=== PATIENT | male | born 1955 | race Caucasian/White ===

== ENCOUNTER 2017-07-13 10:45 | Inpatient (IN) ==
[2017-07-13] MEDS ORDERED: IPRATROPIUM/ALBUTEROL 3 ML AMPUL.NEB NEB ONE ×2 (10:55→11:07)
[2017-07-13] MEDS ORDERED: 0.9 % SODIUM CHLORIDE 2,000 ML IV ONE (11:03)
[2017-07-13 11:36] LABS: Basophils # (Auto) 0 K/mcL (0.0-0.3); Basophils % (Auto) 0.1 % (0.0-2.0); Eosinophils # (Auto) 0 K/mcL (0.0-0.7); Eosinophils % (Auto) 0.5 % (0.0-7.0); Granulocytes % (Auto) 90.6 % (38.0-78.0); Lymphocytes # (Auto) 0.2 K/mcL (1.5-4.8); Lymphocytes % (Auto) 2.5 % (15.5-49.0); Mean Cell Volume 98.5 fL (80.0-100.0); Mean Corpuscular HGB Conc 34.1 g/dL (31.0-36.0); Mean Corpuscular Hemoglobin 33.6 pg (26.0-34.0); Monocytes # (Auto) 0.5 K/mcL (0.1-0.9); Monocytes % (Auto) 6.3 % (1.0-12.0); Platelet Count 145 K/mcL (140-440); RBC 3.86 M/mcL (4.50-5.90); Red Cell Distribution Width 13.8 % (11.5-14.5)
[2017-07-13] MEDS ORDERED: ONDANSETRON 4 MG/2 ML VIAL IV ONE (11:37)
[2017-07-13] MEDS ORDERED: AZITHROMYCIN 500 MG in DEXTROSE 5% IN WATER 250 ML IV ONE (11:39)
[2017-07-13] MEDS ORDERED: cefTRIAXone 1 GM VIAL IV ONE (11:39)
--- NOTE | 2017-07-13 11:41 | Emergency Department Note ---
Weakness HPI - General Chief complaint: Weakness Stated complaint: Vomiting, weakness Time Seen by Provider: 07/13/17 11:36 Source: patient, family Mode of arrival: wheelchair Limitations: no limitations - History of Present Illness HPI Narrative: This 62-year-old male comes in with his , Vanesa, complaining of being tired and ill and not feeling well. He had the flulike symptoms with some cough in the past several days but he reports he has had a two-week history. He developed some dry heaves both last night and today. He ate lunch yesterday but felt awful afterwards and took some DayQuil. He was achy. He has been groggy and "rummy" which she believes is just to him to being ill and tired. He has had some phlegm in his nose that he sucks up. This is worse in the last 1 week. He has had no exposure to influenza. He did not get a flu shot this year. He has not previously been diagnosed with any COPD but he does smoke. He has no history of pneumonia or asthma. He does not use oxygen. He has no inhalers. REVIEW OF SYSTEMS: Has felt warm and/or feverish. checked his temperature this morning and it was 98.8. He has had some sweats in the past 2 days. No throat pain. He has had some chronic nasal congestion but some worsening. Denies chest pain. Has had cough and shortness of breath. He has had a little bit of wheeziness which is new and has been present in the past 2 weeks. He admits to some anxiety and depression. Admits to weakness and fatigue. - Related Data Allergies Allergy/AdvReac Type Severity Reaction Status Date / Time No Known Drug Allergies Allergy Unverified 07/13/17 10:50 Past Medical History - Past Medical History Medical history: Reports: DM (Type II now insulin using.), hypertension (Not currently under treatment), hypothyroidism, other (bladder stone ("blasted" 2008 ). Diabetic peripheral neuropathy.). Denies: asthma, CHF, COPD, CVA, myocardial infarction, seizures, TIA Psychiatric history: Reports: anxiety, depression - Social History smoking status: Current every day smoker Alcohol use: Reports: Daily (beer 1-2) Physical Exam Limitations: no limitations General appearance: lethargic, malaise (moderate to severe. ) Head: atraumatic, normocephalic Eye: Present: EOMI ENT: normal oropharynx, mucous membranes dry Neck: Present: trachea midline. Absent: lymphadenopathy, thyromegaly Respiratory: Present: wheezes (mild occasionasional), other (mildly fast.). Absent: respiratory distress, stridor, accessory muscle use, prolonged expiratory phase Cardiovascular: Present: regular rate, normal rhythm. Absent: systolic murmur, diastolic murmur Abdominal: Present: soft. Absent: distention, tenderness, guarding, rebound, rigidity, organomegaly, mass Extremities: Absent: pedal edema, pretibial edema, calf tenderness Neurological: Present: alert, oriented X3, other (some slow or delay in speech. Responses generally appropriate.) Psychiatric: Present: flat affect. Absent: agitated, anxious Skin: Present: warm, dry Course Vital Signs Temperature 100.2 F H 07/13/17 10:46 Pulse Rate 99 H 07/13/17 10:46 Respiratory Rate 22 07/13/17 10:46 Blood Pressure 166/68 07/13/17 10:46 Pulse Oximetry (%) 87 L 07/13/17 10:46 Temperature 101.5 F H 07/13/17 12:14 Pulse Rate 97 H 07/13/17 12:46 Respiratory Rate 25 H 07/13/17 12:46 Blood Pressure 144/78 07/13/17 12:46 Pulse Oximetry (%) 88 L 07/13/17 12:46 Weakness - MDM Narrative Medical decision making narrative: This 62-year-old male presented with fatigue and not feeling well. He was found to be somewhat hypoxic with sats in the 88% commonly, tachycardic at around 96, low-grade temperature, and respiratory rate in the 30s. He did not complain of much distress, just that he had a 2 week history of cough. His reports 2 days of him feeling worse with "flu-like" type of symptoms. He appeared to have a rather ill general appearance and a sepsis workup was initiated. He met criteria for aggressive measures given the above. He was given 2 L of normal saline. With labs coming back with a troponin of 0.05, and an enlarged heart on chest x-ray with some mild vascular increased appearance and probable CHF, furosemide 10 mg was given IV ordered around 12:15 PM today. Because of his sepsis/SIRS presentation, ceftriaxone and azithromycin were given considering it appeared to be a pulmonary source. Shaw catheter was also ordered around 12:23 PM. He also had a mildly elevated liver function tests a mild anemia and a mild troponin bump of 0.05. EKG was nonacute. I discussed his situation with Dr. Brown, a few minutes before 1 PM and he kindly accepted care of this patient who will need an ICU bed. Tamiflu initiated. Vancomycin ordered per pharmacy recommendations given his creatinine of 2.0. BiPAP also initiated with 12/6 pressures, FiO2 of 60% and a goal of at least 90%. - Lab Data Result diagrams: 07/13/17 11:08 07/13/17 11:07 Lab Results 07/13/17 07/13/17 07/13/17 Range/Units 11:07 11:07 11:07 WBC 7.4 (4.5-11.0) K/mcL RBC 3.86 L (4.50-5.90) M/mcL Hgb 13.0 L (13.5-16.5) g/dL Hct 38.0 L (41.0-55.0) % MCV 98.5 (80.0-100.0) fL MCH 33.6 (26.0-34.0) pg MCHC 34.1 (31.0-36.0) g/dL RDW 13.8 (11.5-14.5) % Plt Count 145 (140-440) K/mcL MPV 10.2 (7.4-10.4) fL Gran % 90.6 H (38.0-78.0) % Lymph % (Auto) 2.5 L (15.5-49.0) % [place] % (Auto) 6.3 (1.0-12.0) % Eos % (Auto) 0.5 (0.0-7.0) % Baso % (Auto) 0.1 (0.0-2.0) % Gran # 6.7 (1.8-8.0) K/mcL Lymph # (Auto) 0.2 L (1.5-4.8) K/mcL [place] # (Auto) 0.5 (0.1-0.9) K/mcL Eos # (Auto) 0 (0.0-0.7) K/mcL Baso # (Auto) 0 (0.0-0.3) K/mcL Differential Comment VBG Lactic Acid (0.5-2.2) mmol/L Sodium 138 (133-145) mmol/L Potassium 4.9 (3.3-5.1) mmol/L Chloride 99 (96-108) mmol/L Carbon Dioxide 23 (22-30) mmol/L Anion Gap 16.0 (8-16) BUN 33 H (8-23) mg/dl Creatinine 2.0 H (0.7-1.2) mg/dl GFR Calculation 35 Glucose 504 H* (70-105) mg/dL Calcium 8.7 (8.6-10.4) mg/dl Total Bilirubin 0.4 (0.0-1.0) mg/dL AST 54 H (0-37) U/l ALT 47 H (0-40) U/l Alkaline Phosphatase 90 (39-117) U/L Troponin T 0.05 H* (0-0.03) ng/ml Total Protein 6.6 (5.9-8.4) gm/dL Albumin 4.0 (3.2-5.2) gm/dL Globulin 2.6 (2.2-3.7) gm/dL Albumin/Globulin Ratio 1.5 (1.0-2.3) Procalcitonin (<0.10) ng/mL Influenza A (Rapid) Influenza B (Rapid) 07/13/17 07/13/17 07/13/17 Range/Units 11:08 11:08 11:08 WBC Cancelled (4.5-11.0) K/mcL RBC Cancelled (4.50-5.90) M/mcL Hgb Cancelled (13.5-16.5) g/dL Hct Cancelled (41.0-55.0) % MCV Cancelled (80.0-100.0) fL MCH Cancelled (26.0-34.0) pg MCHC Cancelled (31.0-36.0) g/dL RDW Cancelled (11.5-14.5) % Plt Count Cancelled (140-440) K/mcL MPV Cancelled (7.4-10.4) fL Gran % Cancelled (38.0-78.0) % Lymph % (Auto) Cancelled (15.5-49.0) % [place] % (Auto) Cancelled (1.0-12.0) % Eos % (Auto) Cancelled (0.0-7.0) % Baso % (Auto) Cancelled (0.0-2.0) % Gran # Cancelled (1.8-8.0) K/mcL Lymph # (Auto) Cancelled (1.5-4.8) K/mcL [place] # (Auto) Cancelled (0.1-0.9) K/mcL Eos # (Auto) Cancelled (0.0-0.7) K/mcL Baso # (Auto) Cancelled (0.0-0.3) K/mcL Differential Comment Cancelled VBG Lactic Acid 1.8 (0.5-2.2) mmol/L Sodium (133-145) mmol/L Potassium (3.3-5.1) mmol/L Chloride (96-108) mmol/L Carbon Dioxide (22-30) mmol/L Anion Gap (8-16) BUN (8-23) mg/dl Creatinine (0.7-1.2) mg/dl GFR Calculation Glucose (70-105) mg/dL Calcium (8.6-10.4) mg/dl Total Bilirubin (0.0-1.0) mg/dL AST (0-37) U/l ALT (0-40) U/l Alkaline Phosphatase (39-117) U/L Troponin T (0-0.03) ng/ml Total Protein (5.9-8.4) gm/dL Albumin (3.2-5.2) gm/dL Globulin (2.2-3.7) gm/dL Albumin/Globulin Ratio (1.0-2.3) Procalcitonin 0.32 (<0.10) ng/mL Influenza A (Rapid) Influenza B (Rapid) 07/13/17 Range/Units 12:00 WBC (4.5-11.0) K/mcL RBC (4.50-5.90) M/mcL Hgb (13.5-16.5) g/dL Hct (41.0-55.0) % MCV (80.0-100.0) fL MCH (26.0-34.0) pg MCHC (31.0-36.0) g/dL RDW (11.5-14.5) % Plt Count (140-440) K/mcL MPV (7.4-10.4) fL Gran % (38.0-78.0) % Lymph % (Auto) (15.5-49.0) % [place] % (Auto) (1.0-12.0) % Eos % (Auto) (0.0-7.0) % Baso % (Auto) (0.0-2.0) % Gran # (1.8-8.0) K/mcL Lymph # (Auto) (1.5-4.8) K/mcL [place] # (Auto) (0.1-0.9) K/mcL Eos # (Auto) (0.0-0.7) K/mcL Baso # (Auto) (0.0-0.3) K/mcL Differential Comment VBG Lactic Acid (0.5-2.2) mmol/L Sodium (133-145) mmol/L Potassium (3.3-5.1) mmol/L Chloride (96-108) mmol/L Carbon Dioxide (22-30) mmol/L Anion Gap (8-16) BUN (8-23) mg/dl Creatinine (0.7-1.2) mg/dl GFR Calculation Glucose (70-105) mg/dL Calcium (8.6-10.4) mg/dl Total Bilirubin (0.0-1.0) mg/dL AST (0-37) U/l ALT (0-40) U/l Alkaline Phosphatase (39-117) U/L Troponin T (0-0.03) ng/ml Total Protein (5.9-8.4) gm/dL Albumin (3.2-5.2) gm/dL Globulin (2.2-3.7) gm/dL Albumin/Globulin Ratio (1.0-2.3) Procalcitonin (<0.10) ng/mL Influenza A (Rapid) Positive A Influenza B (Rapid) Presumed negative Disposition Pt seen by LEASE ADMINISTRATION ANALYST/PA only: No Clinical Impression: Hypoxia, Acidosis, metabolic, Elevated LFTs, Elevated serum creatinine CHF (congestive heart failure) Qualifiers: Heart failure type: systolic Heart failure chronicity: acute Qualified Code(s) : I50.21 - Acute systolic (congestive) heart failure Diabetes mellitus type 2, uncontrolled, with complications Qualifiers: Diabetes mellitus wound care center consultant insulin use: with skilled nursing use Qualified Code(s): E11.8 - Type 2 diabetes mellitus with unspecified complications; E11.65 - Type 2 diabetes mellitus with hyperglycemia; Z79.4 - search planner (current) use of insulin Anemia Qualifiers: Anemia type: unspecified type Qualified Code(s): D64.9 - Anemia, unspecified Disposition: Xfer As Inpt ([facility]) Condition: Critical
--- NOTE | 2017-07-13 11:41 | XRay Report ---
INDICATION: Hypoxia. Cough. TECHNIQUE: PA and lateral upright chest x-ray COMPARISON: None FINDINGS:There is cardiomegaly. Pulmonary vascularity is prominent consistent pulmonary congestion. There are probable subtle septal lines and mild peribronchial thickening. Appearance is consistent with mild interstitial pulmonary edema. No evidence for significant pleural effusion. No focal pulmonary parenchymal consolidation. Findings are consistent with mild congestive heart failure. Clinical correlation and follow-up radiographs recommended. IMPRESSION: 1. Cardiomegaly and pulmonary congestion 2. Probable subtle interstitial edema consistent with congestive heart failure. Clinical correlation and follow-up radiographs are necessary Interpreted and Authenticated by: Rajendra Roberts 07/13/17
[2017-07-13 11:57] LABS: ALT/SGPT 47 U/l (0-40); Albumin/Globulin Ratio 1.5 (1.0-2.3); Alkaline Phosphatase 90 U/L (39-117); Blood Urea Nitrogen 33 mg/dl (8-23)
[2017-07-13] MEDS ORDERED: FUROSEMIDE 20 MG/2 ML VIAL IV ONE (12:19)
[2017-07-13] MEDS ORDERED: LIDOCAINE JEL 2% 1 TUBE 30GM TOPICAL ONE (12:27)
[2017-07-13] MEDS ORDERED: LIDOCAINE 2% URO-JET 5 ML JEL.PF.APP UR ONE (12:50)
[2017-07-13] MEDS ORDERED: VANCOMYCIN PER PHARMACY IV ONE (12:59)
[2017-07-13] MEDS ORDERED: OSELTAMIVIR PHOSPHATE 75 MG CAPSULE PO ONE (13:01)
[2017-07-13] MEDS ORDERED: VANCOMYCIN 1,250 MG in 0.9 % SODIUM CHLORIDE 500 ML IV ONE (13:15)
[2017-07-13] MEDS ORDERED: INSULIN REGULAR, HUMAN 1 UNIT/0.01 ML UNIT IV ONE (13:34)
[2017-07-13 13:35] LABS: Appearance,Urine CLEAR; Bacteria,Urine 0 /hpf (0); Bilirubin,Urine NEG (NEG); Color,Urine YELLOW; Glucose,Urine (UA) >=500 mg/dL (NEG); Leukocyte Esterase,Urine NEG /uL (NEG); Mucus,Urine FEW /hpf (0); Protein,Urine 100 mg/dL (NEG); Urine Amorphous Crystals FEW /hpf (0); Urine Blood 0.03 mg/dL (<0.03); Urine RBC 2 /hpf (0-1); Urine Squamous Epithelial Cell 0 /hpf (0-4); Urine WBC 1 /hpf (0-4); Urobilinogen,Urine NEG (NEG)
[2017-07-13] MEDS ORDERED: LORazepam 2 MG/ML VIAL IV ONE (13:59)
[2017-07-13] MEDS ORDERED: ACETAMINOPHEN 325 MG TABLET PO ONE (14:28)
[2017-07-13] MEDS ORDERED: ONDANSETRON 4 MG/2 ML VIAL IV PRN (15:16)
[2017-07-13] MEDS ORDERED: ACETAMINOPHEN 325 MG TABLET PO PRN (15:16)
[2017-07-13] MEDS ORDERED: NOREPINEPHRINE BITARTRATE 16 MG in 0.9 % SODIUM CHLORIDE 234 ML IV PRN (15:16)
[2017-07-13] MEDS ORDERED: CEFEPIME 2 GM in DEXTROSE 5% IN WATER 50 ML IV SCH (15:16)
[2017-07-13] MEDS ORDERED: VANCOMYCIN PER PHARMACY IV SCH (15:16)
[2017-07-13] MEDS ORDERED: guaiFENesin/CODEINE 10 ML UDC PO PRN (15:16)
[2017-07-13] MEDS ORDERED: POTASSIUM CHLORIDE 40 MEQ in DEXTROSE 5% IN WATER 500 ML IV PRN (15:16)
[2017-07-13] MEDS ORDERED: POTASSIUM CHLORIDE 20 MEQ PACKET PO PRN (15:16)
[2017-07-13] MEDS ORDERED: MAGNESIUM SULFATE 2 GM/50 ML BAG IV PRN (15:16)
[2017-07-13] MEDS ORDERED: DEXTROSE 50% 50 ML VIAL IV PRN (15:24)
[2017-07-13] MEDS ORDERED: DEXTROSE 31 GM ORAL.SUSP PO PRN (15:24)
--- NOTE | 2017-07-13 15:33 | History and Physical Report ---
DATE OF ADMISSION: 07/13/2017 PRIMARY CARE PHYSICIAN: Luisito Dunn M.D. REASON FOR ADMISSION: Worsening shortness of breath, weakness, fatigue, and malaise. HISTORY OF CHIEF COMPLAINT: The patient is a 62-year-old, otherwise previously healthy, with history of diabetes who comes into [facility] Room after 2 weeks progressive shortness of breath along with fever, malaise, and weakness. The symptoms have intensified over the last 48 hours with the inability to perform activities of daily living. Initial workup in the ER was significant for profound hypoxia with a PO2 of 25. Patient was started on nasal cannula oxygen with chest X imaging revealing bilateral infiltrates service to pulmonary edema/pneumonia. After blood cultures patient received antibiotics/Lasix however symptoms fail to improve and he was subsequent restarted on noninvasive ventilation. Hospitalist service was subsequently consulted. on evaluation patient denies any change in mental status. He denies productive cough. He denies associated diarrhea, dysuria, chest pain, rash, joint pain, headache, or photophobia. He denies recent sick contacts, although he has not had his flu vaccine this year. He denies any other risk factors. REVIEW OF SYSTEMS: A ten-point review of system was performed and is negative except the ones discussed above. PAST MEDICAL HISTORY: History of diabetes mellitus type 2. CURRENT MEDICATIONS: Current medication list is being verified. SOCIAL HISTORY: [place] He works in a body shop. He is to his , Marguerite. He smokes six cigarettes a day and carries over a [id number] history of smoking. Occasional alcohol use. No substance abuse. ALLERGIES: None significant. FAMILY HISTORY: Significant for father with coronary artery disease. No other significant family history. PHYSICAL EXAMINATION: GENERAL: The patient is in moderate discomfort, currently on BiPAP mask. BMI 25.1. Height 5 feet 10 inches. VITAL SIGNS: Blood pressure 146/73, respiratory rate 43, temperature 101.5, pulse 93, sats 93% on 40% FiO2 noninvasive ventilation. HEENT: Pupils symmetric. Oral cavity is dry. No ear or nose discharge. Head is normocephalic and atraumatic. NECK: No lymphadenopathy. HEART: S1, S2, regular rhythm. No other telemetry events. Slight tachycardia. ABDOMEN: Soft and nontender. LOWER EXTREMITIES: No cyanosis or clubbing. No joint swelling. SKIN: No suspicious lesions. PSYCHIATRIC: Anxious, but alert, responding, cooperative. NEURO: Nonfocal, moving all four extremities, responding to commands, normal higher function. LABS AND IMAGING: White count 7.4, hemoglobin 13, platelets 145. Lactic acid 1.8. Sodium 138, potassium 4.9, creatinine 2, BUN 33, glucose 504. Bilirubin 0.4, AST 54, ALT 47. Troponin 0.05. Procalcitonin 0.32. UA unremarkable. Influenza A positive. ABG 7.33/44/46 on 5 liters of oxygen. X-ray chest: Cardiomegaly and pulmonary congestion, probably subtle interstitial edema consistent with congestive heart failure. EKG: Sinus tachycardia, left atrial enlargement. No ST segment changes. ASSESSMENT AND PLAN: A 62-year-old admitted with acute hypoxic respiratory failure/influenza pneumonia. 1. Influenza pneumonia. Continue Tamiflu, supportive management, crystalloids. 2. Hypoxic respiratory failure with a large A-a gradient and pO2/FiO2 ratio less than 200. Start noninvasive ventilation in light of possible shunt physiology. Continue pulmonary toilet, bronchodilators. Steroids currently not indicated in light of influenza. Start empiric MRSA coverage for super influenza and bacterial infections. 3. Acute pulmonary edema. Initiate diuretics. Echocardiogram. 4. History of diabetes mellitus type 2. Continue basal prandial insulin. 5. Other prior medical issues will be managed on home medications currently being verified from pharmacy. 6. CODE STATUS: FULL CODE. 7. Prophylaxis will be on heparin. PLAN FOR TODAY: 1. Echocardiogram. 2. Supportive management. 3. Tamiflu. 4. Empiric antibiotic coverage, including cefepime and vancomycin. 5. Gentle diuresis. 6. Noninvasive ventilation. 7. Initial [place] score 18, high-risk mortality. Admit as inpatient. Anticipate minimum 48-hour, two-midnight stay. AA:[email or web address] Job ID: [id number] Doc ID: [id number] Kyle ALBA
[2017-07-13] MEDS: IPRATROPIUM/ALBUTEROL 3 ML AMPUL.NEB NEB SCH ×3 (15:47→23:06)
[2017-07-13] MEDS: 0.9 % SODIUM CHLORIDE 10 ML SYRINGE IV SCH ×2 (17:22→21:27)
[2017-07-13] MEDS: INSULIN LISPRO 1 UNIT/0.01 ML UNIT SQ SCH ×5 (17:25→21:49)
[2017-07-13] MEDS: CEFEPIME 2 GM VIAL IV SCH (17:28)
[2017-07-13] MEDS ORDERED: LORazepam 2 MG/ML VIAL IV PRN ×2 (18:37→20:10)
[2017-07-13] MEDS ORDERED: LORazepam 2 MG/ML VIAL ONE (18:55)
[2017-07-13] MEDS: BUDESONIDE 0.5 MG/2 ML AMPUL.NEB NEB SCH (19:14)
[2017-07-13] MEDS: HEPARIN 5,000 UNIT/ML VIAL SQ SCH (21:21)
[2017-07-13] MEDS: TAMSULOSIN 0.4 MG CAPSULE PO SCH (21:21)
[2017-07-13] MEDS: DOCUSATE SODIUM 100 MG CAPSULE PO SCH (21:21)
[2017-07-13] MEDS: GABAPENTIN 400 MG CAPSULE PO SCH (21:23)
[2017-07-13] MEDS: traZODone HCL 50 MG TABLET PO PRN (21:25)
[2017-07-13] MEDS: SENNOSIDES/DOCUSATE SODIUM 1 TAB TABLET PO SCH (21:25)
[2017-07-13] MEDS: INSULIN GLARGINE, HUMAN 1 UNIT/0.01 ML SQ SCH (21:47)
[2017-07-14] MEDS: INSULIN LISPRO 1 UNIT/0.01 ML UNIT SQ SCH ×9 (00:37→21:44)
[2017-07-14] MEDS: ACETAMINOPHEN 1,000 MG/100 ML BOTTLE IV PRN ×2 (00:37→10:24)
[2017-07-14] MEDS ORDERED: LORazepam 2 MG/ML VIAL IV PRN (02:32)
[2017-07-14] MEDS: IPRATROPIUM/ALBUTEROL 3 ML AMPUL.NEB NEB SCH ×6 (03:09→23:18)
[2017-07-14] MEDS: 0.9 % SODIUM CHLORIDE 10 ML SYRINGE IV SCH ×3 (05:42→21:46)
[2017-07-14 05:44] LABS: Mean Cell Volume 98.8 fL (80.0-100.0); Mean Corpuscular HGB Conc 34.6 g/dL (31.0-36.0); Mean Corpuscular Hemoglobin 34.2 pg (26.0-34.0); Platelet Count 127 K/mcL (140-440); RBC 3.69 M/mcL (4.50-5.90); Red Cell Distribution Width 13.6 % (11.5-14.5)
[2017-07-14 06:26] LABS: Band Neutrophils % 12 % (0-10); Lymphocytes % 8 % (15-49); Monocytes % (Manual) 2 % (1-12); Platelet Estimate DECREASED (NORMAL); RBC Morphology ABNORM (NORMAL); Segmented Neutrophils % 78 % (38-78)
[2017-07-14 06:36] LABS: ALT/SGPT 42 U/l (0-40); Albumin 3.4 gm/dL (3.2-5.2); Albumin/Globulin Ratio 1.4 (1.0-2.3); Alkaline Phosphatase 82 U/L (39-117); Bilirubin,Direct < 0.2 mg/dL (0.0-0.3); Blood Urea Nitrogen 41 mg/dl (8-23); Gamma Glutamyl Transpeptidase 66 U/L (8-61); Uric Acid 6.2 mg/dL (2.5-8.0)
[2017-07-14] MEDS: LEVOTHYROXINE 150 MCG TABLET PO SCH (07:44)
[2017-07-14] MEDS: BUDESONIDE 0.5 MG/2 ML AMPUL.NEB NEB SCH ×2 (07:55→19:07)
[2017-07-14] MEDS: GABAPENTIN 400 MG CAPSULE PO SCH ×3 (08:18→21:46)
[2017-07-14] MEDS: DOCUSATE SODIUM 100 MG CAPSULE PO SCH ×2 (08:49→21:46)
[2017-07-14] MEDS: MULTIVIT,THER IRON,CA,FA & MIN 1 TABLET PO SCH (08:49)
[2017-07-14] MEDS: VANCOMYCIN 1,250 MG in 0.9 % SODIUM CHLORIDE 500 ML IV SCH (09:09)
[2017-07-14] MEDS: CEFEPIME 2 GM VIAL IV SCH (09:09)
[2017-07-14] MEDS: HEPARIN 5,000 UNIT/ML VIAL SQ SCH ×2 (09:09→21:45)
[2017-07-14] MEDS ORDERED: OSELTAMIVIR PHOSPHATE 75 MG CAPSULE PO ONE (09:55)
[2017-07-14] MEDS: TAMSULOSIN 0.4 MG CAPSULE PO SCH ×2 (13:02→21:46)
--- NOTE | 2017-07-14 13:40 | Internal Med Progress Note ---
Medical - PN: Subj Patient information: Note initiated : 07/14/17 at 1:36 pm Service Date, if different from initiated Date: [] Patient: Javon Head 62 y/o M admitted on 07/13/17 for Hypoxic Resp Failure, Influenza Pneumonia. Chief Complaint: [] Interval history: patient admitted with acute influenza pneumonia/hypoxia respiratory failure. PaO2 to FiO2 ratio less than 200. Critically ill. On BiPAP.bilateral multifocal infiltrates. Started on bronchodilators/antibiotics. admitted to ICU. low threshold for mechanical ventilation if clinical deterioration noted.ABG 7.33/44/46 on 5 L oxygen. 07/14-patient on BiPAP. On 50% FiO2. Anxious requiring lorazepam. Large AA gradient.white count 7.4 with 12% bands.blood sugars improving down from 500 for 2-32 on basal prandial insulin. cultures negative so far. ontinue noninvasive ventilation. If clinical deterioration noted initiate mechanical ventilation. High-risk development of ARDS. Also high-risk superimposed pneumonia.continue antibiotic coverage/Tamiflu. [place] score 16 - Constitutional Vitals: Vital Signs Temp Pulse Resp BP Pulse Ox 100.5 F H 89 20 141/67 95 07/14/17 12:20 07/14/17 13:01 07/14/17 13:01 07/14/17 13:01 07/14/17 13:01 Period Temp Pulse Resp BP Sys/Locke Pulse Ox Last 24 Hr 98.9 F-102.3 F 87-105 20-43 116-166/54-87 87-97 Intake and Output 07/13/17 07/14/17 07/14/17 21:59 05:59 13:59 Intake Total 500 / 500 100 / 100 340 / 340 Output Total 2150 / 2150 425 / 425 540 / 540 Balance -1650 / -1650 -325 / -325 -200 / -200 Weight 179 lb 11.2 oz Intake & Output: Intake & Output 07/13/17 07/14/17 07/14/17 21:59 05:59 13:59 Intake Total 500 / 500 100 / 100 340 / 340 Output Total 2150 / 2150 425 / 425 540 / 540 Balance -1650 / -1650 -325 / -325 -200 / -200 Weight 179 lb 11.2 oz Intake: IV 500 / 500 100 / 100 100 / 100 Vancomycin 1,250 mg In Sodium 500 / 500 Chloride 0.9% 500 ml @ 333.3 mls/hr IV ONCE ONE Rx#: [id number] Oral 240 / 240 Output: Urine Catheter Amount 2150 / 2150 425 / 425 540 / 540 General appearance: mild distress Exam: on noninvasive ventilation 50% FiO2 Labored breathing but improved tachypnea Improved tachycardia nondistended abdomen Medical - PN: Obj Da - Labs CBC & Chem 7: 07/14/17 03:50 07/14/17 03:50 Labs: Abnormal Lab Results 07/14/17 07/14/17 07/13/17 03:50 03:50 12:59 RBC 3.69 L Hgb 12.6 L Hct 36.4 L MCH 34.2 H Plt Count 127 L MPV 10.8 H Gran % Lymph % (Auto) Lymph # (Auto) Band Neutrophils % 12 H Lymphocytes % 8 L Platelet Estimate Decreased A RBC Morphology Abnorm A RBC Fragments Occ A ESR BUN 41 H Creatinine 2.1 H Glucose 232 H Calcium 8.3 L Phosphorus 2.4 L GGT 66 H AST ALT 42 H Lactate Dehydrogenase 282 H Troponin T C-Reactive Protein Urine Protein 100 A Urine Glucose (UA) >=500 A Urine Ketones 5/tr A Urine Occult Blood 0.03 A Urine RBC 2 H Amorphous Crystals Few A Influenza A (Rapid) 07/13/17 07/13/17 07/13/17 12:00 11:07 11:07 RBC Hgb Hct MCH Plt Count MPV Gran % Lymph % (Auto) Lymph # (Auto) Band Neutrophils % Lymphocytes % Platelet Estimate RBC Morphology RBC Fragments ESR 22 H BUN Creatinine Glucose Calcium Phosphorus GGT AST ALT Lactate Dehydrogenase Troponin T C-Reactive Protein 5.6 H Urine Protein Urine Glucose (UA) Urine Ketones Urine Occult Blood Urine RBC Amorphous Crystals Influenza A (Rapid) Positive A 07/13/17 07/13/17 07/13/17 11:07 11:07 11:07 RBC 3.86 L Hgb 13.0 L Hct 38.0 L MCH Plt Count MPV Gran % 90.6 H Lymph % (Auto) 2.5 L Lymph # (Auto) 0.2 L Band Neutrophils % Lymphocytes % Platelet Estimate RBC Morphology RBC Fragments ESR BUN 33 H Creatinine 2.0 H Glucose 504 H* Calcium Phosphorus GGT AST 54 H ALT 47 H Lactate Dehydrogenase Troponin T 0.05 H* C-Reactive Protein Urine Protein Urine Glucose (UA) Urine Ketones Urine Occult Blood Urine RBC Amorphous Crystals Influenza A (Rapid) Meds: Medications Acetaminophen (Tylenol) 650 mg PO Q4-6HP PRN PRN Reason: PAIN/FEVER > 101 Last Admin: 07/13/17 21:25 Dose: 650 mg Albuterol/Ipratropium (Duoneb) 3 ml NEB Q4HRT [facility] Last Admin: 07/14/17 11:09 Dose: 3 ml Budesonide (Pulmicort) 0.5 mg NEB Q12 [facility] Last Admin: 07/14/17 07:55 Dose: 0.5 mg Cefepime HCl (Maxipime) 2 gm IV DAILY [facility] Last Admin: 07/14/17 09:09 Dose: 2 gm Dextrose (Dextrose 50%) 0 ml IV UD PRN PRN Reason: Hypoglycemia Diagnostic Test (Pha) (Accu-Chek) 1 each FS ACHS [facility] Last Admin: 07/14/17 11:39 Dose: 1 each Docusate Sodium (Colace) 100 mg PO BID [facility] Last Admin: 07/14/17 08:49 Dose: Not Given Gabapentin (Neurontin) 400 mg PO TID [facility] Last Admin: 07/14/17 08:18 Dose: 400 mg Glucose (Insta-Glucose) 15 gm PO PRN PRN PRN Reason: Hypoglycemia Guaifenesin/Codeine Phosphate (Robitussin Ac) 10 ml PO Q4HP PRN PRN Reason: Cough Heparin Sodium (Porcine) (Heparin) 5,000 unit SQ Q12 [facility] Last Admin: 07/14/17 09:09 Dose: 5,000 unit Potassium Chloride 40 meq/ (Dextrose) 520 mls @ 130 mls/hr IV UD PRN PRN Reason: K+ = or < 3.5 Magnesium Sulfate (Magnesium Sulfate) 2 gm in 50 mls @ 50 mls/hr IV UD PRN PRN Reason: MG = or < 1.7 Norepinephrine Bitartrate 16 (mg/ Sodium Chloride) 250 mls @ 9.37 mls/hr IV Q24HP PRN; Protocol; 10 MCG/MIN PRN Reason: TITRATE TO KEEP MAP > 65 Acetaminophen (Ofirmev) 1,000 mg in 100 mls @ 200 mls/hr IV Q6HP PRN PRN Reason: PAIN/FEVER > 101 Last Infusion: 07/14/17 11:27 Dose: Infused Vancomycin HCl 1,250 mg/ (Sodium Chloride) 500 mls @ 333.3 mls/hr IV DAILY [facility] Last Admin: 07/14/17 09:09 Dose: 333.3 mls/hr Insulin Glargine (Lantus) 20 unit SQ HS [facility] Last Admin: 07/13/17 21:47 Dose: 20 unit Insulin Human Lispro (Humalog) 2 unit SQ ACHS [facility] Last Admin: 07/14/17 11:43 Dose: 2 unit Insulin Human Lispro (Humalog) 0 unit SQ ACHS [facility] PRN Reason: Protocol Last Admin: 07/14/17 11:43 Dose: 6 unit Iron Carb/Multivit/Pathology Collector/Folic Acid (Multivitamin W/Minerals) 1 tab PO DAILY [facility] Last Admin: 07/14/17 08:49 Dose: Not Given Levothyroxine Sodium (Synthroid) 150 mcg PO ACB [facility] Last Admin: 07/14/17 07:44 Dose: 150 mcg Lorazepam (Ativan) 0.25 mg IV Q4HP PRN PRN Reason: ANXIETY/SEDATION Ondansetron HCl (Zofran) 4 mg IV Q4-6HP PRN PRN Reason: Nausea And Vomiting Oseltamivir Phosphate (Tamiflu) 75 mg PO BID [facility] Potassium Chloride (Klor-Con) 40 meq PO DAILYP PRN PRN Reason: K+ < 3.5 Senna/Docusate Sodium (Senna Plus Tablet) 1 tab PO [facility] Last Admin: 07/13/17 21:25 Dose: 1 tab Sodium Chloride (Saline Flush) 10 ml IV Q8 [facility] Last Admin: 07/14/17 05:42 Dose: 10 ml Tamsulosin HCl (Flomax) 0.4 mg PO HS [facility] Last Admin: 07/13/17 21:21 Dose: 0.4 mg Trazodone HCl (Desyrel) 50 mg PO HSP PRN PRN Reason: Insomnia Last Admin: 07/13/17 21:25 Dose: 50 mg Vancomycin HCl (Vancomycin Per Pharmacy) 1 order IV UD [facility] Medical - PN: A/P - Time Spent With Patient Total time spent is greater than 50% in coordination of care (as documented) at patient's floor/unit and/or counseling patient: Greater than 35 minutes (critical care time) (1) Acute respiratory failure with hypoxia Status: Acute Assessment and plan: * acute respiratory failure with profound hypoxia/large AA gradient. Bilateral infiltrates. Continue noninvasive ventilation/positive pressure support. Shunt physiology. repeat chest imaging 24 hours * Influenza pneumonia-continue Tamiflu. Empiric coverage with vancomycin for superinfection. * pulmonary edema clinically improved on noninvasive ventilation/ diuresis * DM type II on basal prandial insulin * BPH on Flomax * Hypothyroidism on thyroxine * Neuropathy on gabapentin * Full code * Prophylaxis heparin Plan * noninvasive ventilation * Serial blood gases chest imaging * Antibiotic coverage * pre-existing medical condition management as above * patient critically ill Current Visit: Yes Medical - PN: Qual - VTE Deep Vein Thrombosis/Pulmonary Embolism Present on Admission: No
[2017-07-14] MEDS: INSULIN GLARGINE, HUMAN 1 UNIT/0.01 ML SQ SCH (21:45)
[2017-07-14] MEDS: OSELTAMIVIR PHOSPHATE 75 MG CAPSULE PO SCH (21:46)
[2017-07-14] MEDS: traZODone HCL 50 MG TABLET PO PRN (21:46)
[2017-07-14] MEDS: SENNOSIDES/DOCUSATE SODIUM 1 TAB TABLET PO SCH (21:46)
[2017-07-15] MEDS: IPRATROPIUM/ALBUTEROL 3 ML AMPUL.NEB NEB SCH ×6 (02:50→23:21)
[2017-07-15] MEDS: 0.9 % SODIUM CHLORIDE 10 ML SYRINGE IV SCH ×3 (05:10→22:01)
--- NOTE | 2017-07-15 06:23 | XRay Report ---
INDICATION: Congestive heart failure. Follow-up. TECHNIQUE: AP chest x-ray,portable semiupright COMPARISON: 07/13/2017 FINDINGS:Bilateral diffuse pulmonary parenchymal infiltrates, right slightly worse in left. Filtrates have worsened since previous examination. There is a small right pleural effusion. Cardiomegaly appears somewhat improved. Infiltrates are nonspecific. Findings are probably related to pulmonary edema. Pneumonia is possible. IMPRESSION: 1. Increasing bilateral pulmonary parenchymal infiltrates and small right pleural effusion 2. Appearance is most consistent with congestive heart failure. Interpreted and Authenticated by: Rajendra Roberts 07/15/17
[2017-07-15 06:40] LABS: Mean Cell Volume 99.3 fL (80.0-100.0); Mean Corpuscular HGB Conc 34.3 g/dL (31.0-36.0); Mean Corpuscular Hemoglobin 34.1 pg (26.0-34.0); Platelet Count 101 K/mcL (140-440); RBC 3.75 M/mcL (4.50-5.90); Red Cell Distribution Width 13.7 % (11.5-14.5)
[2017-07-15] MEDS: LEVOTHYROXINE 150 MCG TABLET PO SCH (06:51)
[2017-07-15] MEDS: INSULIN LISPRO 1 UNIT/0.01 ML UNIT SQ SCH ×8 (07:05→21:26)
[2017-07-15] MEDS: BUDESONIDE 0.5 MG/2 ML AMPUL.NEB NEB SCH ×2 (07:12→19:14)
[2017-07-15 07:41] LABS: Band Neutrophils % 15 % (0-10); Lymphocytes % 15 % (15-49); Monocytes % (Manual) 3 % (1-12); Myelocytes % 1 % (0-0); Platelet Estimate DECREASED (NORMAL); RBC Morphology NORMAL (NORMAL); Segmented Neutrophils % 66 % (38-78)
[2017-07-15 08:02] LABS: ALT/SGPT 32 U/l (0-40); Albumin/Globulin Ratio 1.2 (1.0-2.3); Alkaline Phosphatase 76 U/L (39-117); Bilirubin,Direct < 0.2 mg/dL (0.0-0.3); Blood Urea Nitrogen 45 mg/dl (8-23); Gamma Glutamyl Transpeptidase 69 U/L (8-61); Uric Acid 6.2 mg/dL (2.5-8.0)
[2017-07-15] MEDS: HEPARIN 5,000 UNIT/ML VIAL SQ SCH ×2 (09:36→21:24)
[2017-07-15] MEDS: CEFEPIME 2 GM VIAL IV SCH (09:36)
[2017-07-15] MEDS: DOCUSATE SODIUM 100 MG CAPSULE PO SCH ×2 (09:37→21:25)
[2017-07-15] MEDS: GABAPENTIN 400 MG CAPSULE PO SCH ×3 (09:37→21:33)
[2017-07-15] MEDS: MULTIVIT,THER IRON,CA,FA & MIN 1 TABLET PO SCH (09:37)
[2017-07-15] MEDS: OSELTAMIVIR PHOSPHATE 75 MG CAPSULE PO SCH ×2 (09:37→21:38)
[2017-07-15] MEDS: VANCOMYCIN 1,500 MG in 0.9 % SODIUM CHLORIDE 500 ML IV SCH (09:52)
[2017-07-15] MEDS ORDERED: FUROSEMIDE 20 MG/2 ML VIAL IV ONE (13:02)
--- NOTE | 2017-07-15 13:10 | Internal Med Progress Note ---
Medical - PN: Subj Patient information: Note initiated : 07/15/17 at 1:05 pm Service Date, if different from initiated Date: [] Patient: Javon Head 62 y/o M admitted on 07/13/17 for Hypoxic Resp Failure, Influenza Pneumonia. Chief Complaint: [] Interval history: patient admitted with acute influenza pneumonia/hypoxia respiratory failure. PaO2 to FiO2 ratio less than 200. Critically ill. On BiPAP.bilateral multifocal infiltrates. Started on bronchodilators/antibiotics. admitted to ICU. low threshold for mechanical ventilation if clinical deterioration noted.ABG 7.33/44/46 on 5 L oxygen. 07/14-patient on BiPAP. On 50% FiO2. Anxious requiring lorazepam. Large AA gradient.white count 7.4 with 12% bands.blood sugars improving down from 500 for 2-32 on basal prandial insulin. cultures negative so far. ontinue noninvasive ventilation. If clinical deterioration noted initiate mechanical ventilation. High-risk development of ARDS. Also high-risk superimposed pneumonia.continue antibiotic coverage/Tamiflu. Elim Ira score 16 07/15- patient doing well. On 30% FiO2 BiPAP. No overnight events. Tolerating diet. Anxious but cooperative. No telemetry events. Tachycardia. Resolved. Good urine output. No significant respiratory distress except for time spent off BiPAP. No concerns per staff - Constitutional Vitals: Vital Signs Temp Pulse Resp BP Pulse Ox 100.5 F H 92 H 20 135/75 95 07/15/17 13:01 07/15/17 13:01 07/15/17 13:01 07/15/17 13:01 07/15/17 13:01 Period Temp Pulse Resp BP Sys/Locke Pulse Ox Last 24 Hr 99.9 F-101.5 F 87-99 16-28 124-152/65-83 90-98 Intake and Output 07/14/17 07/15/17 07/15/17 21:59 05:59 13:59 Intake Total 360 / 360 1100 / 1100 Output Total 580 / 580 495 / 495 575 / 575 Balance -580 / -580 -135 / -135 525 / 525 Weight 171 lb 11.2 oz Intake & Output: Intake & Output 07/14/17 07/15/17 07/15/17 21:59 05:59 13:59 Intake Total 360 / 360 1100 / 1100 Output Total 580 / 580 495 / 495 575 / 575 Balance -580 / -580 -135 / -135 525 / 525 Weight 171 lb 11.2 oz Intake: IV 500 / 500 Vancomycin 1,250 mg In Sodium 500 / 500 Chloride 0.9% 500 ml @ 333.3 mls/hr IV DAILY [facility] Rx#: [id number] Oral 360 / 360 600 / 600 Output: Urine Catheter Amount 580 / 580 495 / 495 575 / 575 Other: Meal Breakfast Percent of Meal Consumed 25% General appearance: cooperative, no acute distress Exam: off BiPAP minimally labored breathing minimal anxiety no Lymphedema Medical - PN: Obj Da - Labs CBC & Chem 7: 07/15/17 04:00 07/15/17 04:00 Labs: Abnormal Lab Results 07/15/17 07/15/17 07/14/17 04:00 04:00 14:10 RBC 3.75 L Hgb 12.8 L Hct 37.2 L MCH 34.1 H Plt Count 101 L MPV 10.6 H Gran % Lymph % (Auto) Lymph # (Auto) Band Neutrophils % 15 H Lymphocytes % Myelocytes % 1 H Platelet Estimate Decreased A RBC Morphology RBC Fragments ESR BUN 45 H Creatinine 1.9 H Glucose 284 H Calcium 8.3 L Phosphorus GGT 69 H AST ALT Lactate Dehydrogenase 317 H Troponin T 0.07 H* C-Reactive Protein Total Protein 5.6 L Albumin 3.0 L Urine Protein Urine Glucose (UA) Urine Ketones Urine Occult Blood Urine RBC Amorphous Crystals Influenza A (Rapid) 07/14/17 07/14/17 07/13/17 03:50 03:50 12:59 RBC 3.69 L Hgb 12.6 L Hct 36.4 L MCH 34.2 H Plt Count 127 L MPV 10.8 H Gran % Lymph % (Auto) Lymph # (Auto) Band Neutrophils % 12 H Lymphocytes % 8 L Myelocytes % Platelet Estimate Decreased A RBC Morphology Abnorm A RBC Fragments Occ A ESR BUN 41 H Creatinine 2.1 H Glucose 232 H Calcium 8.3 L Phosphorus 2.4 L GGT 66 H AST ALT 42 H Lactate Dehydrogenase 282 H Troponin T C-Reactive Protein Total Protein Albumin Urine Protein 100 A Urine Glucose (UA) >=500 A Urine Ketones 5/tr A Urine Occult Blood 0.03 A Urine RBC 2 H Amorphous Crystals Few A Influenza A (Rapid) 07/13/17 07/13/17 07/13/17 12:00 11:07 11:07 RBC Hgb Hct MCH Plt Count MPV Gran % Lymph % (Auto) Lymph # (Auto) Band Neutrophils % Lymphocytes % Myelocytes % Platelet Estimate RBC Morphology RBC Fragments ESR 22 H BUN Creatinine Glucose Calcium Phosphorus GGT AST ALT Lactate Dehydrogenase Troponin T C-Reactive Protein 5.6 H Total Protein Albumin Urine Protein Urine Glucose (UA) Urine Ketones Urine Occult Blood Urine RBC Amorphous Crystals Influenza A (Rapid) Positive A 07/13/17 07/13/17 07/13/17 11:07 11:07 11:07 RBC 3.86 L Hgb 13.0 L Hct 38.0 L MCH Plt Count MPV Gran % 90.6 H Lymph % (Auto) 2.5 L Lymph # (Auto) 0.2 L Band Neutrophils % Lymphocytes % Myelocytes % Platelet Estimate RBC Morphology RBC Fragments ESR BUN 33 H Creatinine 2.0 H Glucose 504 H* Calcium Phosphorus GGT AST 54 H ALT 47 H Lactate Dehydrogenase Troponin T 0.05 H* C-Reactive Protein Total Protein Albumin Urine Protein Urine Glucose (UA) Urine Ketones Urine Occult Blood Urine RBC Amorphous Crystals Influenza A (Rapid) Meds: Medications Acetaminophen (Tylenol) 650 mg PO Q4-6HP PRN PRN Reason: PAIN/FEVER > 101 Last Admin: 07/13/17 21:25 Dose: 650 mg Albuterol/Ipratropium (Duoneb) 3 ml NEB Q4HRT [facility] Last Admin: 07/15/17 11:12 Dose: 3 ml Budesonide (Pulmicort) 0.5 mg NEB Q12 [facility] Last Admin: 07/15/17 07:12 Dose: 0.5 mg Cefepime HCl (Maxipime) 2 gm IV DAILY [facility] Last Admin: 07/15/17 09:36 Dose: 2 gm Dextrose (Dextrose 50%) 0 ml IV UD PRN PRN Reason: Hypoglycemia Diagnostic Test (Pha) (Accu-Chek) 1 each FS ACHS [facility] Last Admin: 07/15/17 10:27 Dose: 1 each Docusate Sodium (Colace) 100 mg PO BID [facility] Last Admin: 07/15/17 09:37 Dose: 100 mg Furosemide (Lasix) 20 mg IV DAILY [facility] Gabapentin (Neurontin) 400 mg PO TID [facility] Last Admin: 07/15/17 09:37 Dose: 400 mg Glucose (Insta-Glucose) 15 gm PO PRN PRN PRN Reason: Hypoglycemia Guaifenesin/Codeine Phosphate (Robitussin Ac) 10 ml PO Q4HP PRN PRN Reason: Cough Heparin Sodium (Porcine) (Heparin) 5,000 unit SQ Q12 [facility] Last Admin: 07/15/17 09:36 Dose: 5,000 unit Potassium Chloride 40 meq/ (Dextrose) 520 mls @ 130 mls/hr IV UD PRN PRN Reason: K+ = or < 3.5 Magnesium Sulfate (Magnesium Sulfate) 2 gm in 50 mls @ 50 mls/hr IV UD PRN PRN Reason: MG = or < 1.7 Norepinephrine Bitartrate 16 (mg/ Sodium Chloride) 250 mls @ 9.37 mls/hr IV Q24HP PRN; Protocol; 10 MCG/MIN PRN Reason: TITRATE TO KEEP MAP > 65 Acetaminophen (Ofirmev) 1,000 mg in 100 mls @ 200 mls/hr IV Q6HP PRN PRN Reason: PAIN/FEVER > 101 Last Infusion: 07/14/17 11:27 Dose: Infused Vancomycin HCl 1,500 mg/ (Sodium Chloride) 500 mls @ 333.3 mls/hr IV Q24H [facility] Last Admin: 07/15/17 09:52 Dose: 333.3 mls/hr Insulin Glargine (Lantus) 20 unit SQ HS [facility] Last Admin: 07/14/17 21:45 Dose: 20 unit Insulin Human Lispro (Humalog) 2 unit SQ ACHS [facility] Last Admin: 07/15/17 10:27 Dose: 2 unit Insulin Human Lispro (Humalog) 0 unit SQ ACHS [facility] PRN Reason: Protocol Last Admin: 07/15/17 10:27 Dose: 2 unit Iron Carb/Multivit/Stites/Folic Acid (Multivitamin W/Minerals) 1 tab PO DAILY [facility] Last Admin: 07/15/17 09:37 Dose: 1 tab Levothyroxine Sodium (Synthroid) 150 mcg PO ACB [facility] Last Admin: 07/15/17 06:51 Dose: 150 mcg Lorazepam (Ativan) 0.25 mg IV Q4HP PRN PRN Reason: ANXIETY/SEDATION Last Admin: 07/14/17 19:06 Dose: 0.25 mg Ondansetron HCl (Zofran) 4 mg IV Q4-6HP PRN PRN Reason: Nausea And Vomiting Oseltamivir Phosphate (Tamiflu) 75 mg PO BID [facility] Last Admin: 07/15/17 09:37 Dose: 75 mg Potassium Chloride (Klor-Con) 40 meq PO DAILYP PRN PRN Reason: K+ < 3.5 Senna/Docusate Sodium (Senna Plus Tablet) 1 tab PO HS [facility] Last Admin: 07/14/17 21:46 Dose: 1 tab Sodium Chloride (Saline Flush) 10 ml IV Q8 [facility] Last Admin: 07/15/17 05:10 Dose: 10 ml Tamsulosin HCl (Flomax) 0.4 mg PO HS [facility] Last Admin: 07/14/17 21:46 Dose: 0.4 mg Trazodone HCl (Desyrel) 50 mg PO HSP PRN PRN Reason: Insomnia Last Admin: 07/14/17 21:46 Dose: 50 mg Vancomycin HCl (Vancomycin Per Pharmacy) 1 order IV UD [facility] Medical - PN: A/P - Time Spent With Patient Total time spent is greater than 50% in coordination of care (as documented) at patient's floor/unit and/or counseling patient: Greater than 35 minutes (critical care time) (1) Acute respiratory failure with hypoxia Status: Acute Assessment and plan: * Acute respiratory failure with profound hypoxia/large AA gradient. clinical improvement noted. Continue noninvasive ventilation. Worsening Bilateral infiltrates. * Influenza pneumonia-continue Tamiflu. * A/c pulmonary edema -continue diuresis/echocardiogram to evaluate LVEF. * DM type II on basal prandial insulin * BPH on Flomax * Hypothyroidism on thyroxine * Neuropathy on gabapentin * Full code * Prophylaxis heparin Plan * Continue noninvasive ventilation * Serial blood gases chest imaging * ECHO/Diuretics * pre-existing medical condition management as above Current Visit: Yes Medical - PN: Qual - VTE Deep Vein Thrombosis/Pulmonary Embolism Present on Admission: No
[2017-07-15] MEDS: SENNOSIDES/DOCUSATE SODIUM 1 TAB TABLET PO SCH (21:25)
[2017-07-15] MEDS: TAMSULOSIN 0.4 MG CAPSULE PO SCH (21:25)
[2017-07-15] MEDS: INSULIN GLARGINE, HUMAN 1 UNIT/0.01 ML SQ SCH (21:26)
[2017-07-16] MEDS: IPRATROPIUM/ALBUTEROL 3 ML AMPUL.NEB NEB SCH ×6 (03:28→23:26)
[2017-07-16] MEDS: 0.9 % SODIUM CHLORIDE 10 ML SYRINGE IV SCH ×5 (05:32→22:00)
[2017-07-16 06:21] LABS: ALT/SGPT 22 U/l (0-40); Albumin 2.8 gm/dL (3.2-5.2); Albumin/Globulin Ratio 1.4 (1.0-2.3); Alkaline Phosphatase 65 U/L (39-117); Bilirubin,Direct < 0.2 mg/dL (0.0-0.3); Blood Urea Nitrogen 36 mg/dl (8-23); Gamma Glutamyl Transpeptidase 68 U/L (8-61); Uric Acid 5.2 mg/dL (2.5-8.0)
[2017-07-16] MEDS: BUDESONIDE 0.5 MG/2 ML AMPUL.NEB NEB SCH ×2 (07:05→19:10)
[2017-07-16 08:08] LABS: Mean Cell Volume 98.6 fL (80.0-100.0); Mean Corpuscular HGB Conc 34.7 g/dL (31.0-36.0); Mean Corpuscular Hemoglobin 34.2 pg (26.0-34.0); Platelet Count 100 K/mcL (140-440); Red Cell Distribution Width 13.7 % (11.5-14.5)
[2017-07-16] MEDS: INSULIN LISPRO 1 UNIT/0.01 ML UNIT SQ SCH ×8 (08:11→21:01)
[2017-07-16] MEDS: LEVOTHYROXINE 150 MCG TABLET PO SCH (08:11)
[2017-07-16 08:14] LABS: Band Neutrophils % 10 % (0-10); Lymphocytes % 21 % (15-49); Monocytes % (Manual) 4 % (1-12); Platelet Estimate DECREASED (NORMAL); RBC Morphology NORMAL (NORMAL); Segmented Neutrophils % 65 % (38-78)
[2017-07-16] MEDS ORDERED: FUROSEMIDE 20 MG/2 ML VIAL IV SCH (09:00)
[2017-07-16] MEDS: CEFEPIME 2 GM VIAL IV SCH (09:06)
--- NOTE | 2017-07-16 09:06 | XRay Report ---
INDICATION: Pneumonia TECHNIQUE: AP chest x-ray,portable semiupright COMPARISON: 07/15/2017, 07/13/2017 FINDINGS:Cardiomegaly is unchanged. Bilateral diffuse pulmonary parenchymal infiltrates. There has been interval improvement. Small right pleural effusion also appears slightly improved. Findings are most consistent with congestive heart failure. Pneumonia is not excluded. IMPRESSION: 1. Cardiomegaly, stable 2. Mildly improved infiltrates. Persistent abnormality and continued follow-up recommended Interpreted and Authenticated by: Rajendra Roberts 07/16/17
[2017-07-16] MEDS: VANCOMYCIN 1,500 MG in 0.9 % SODIUM CHLORIDE 500 ML IV SCH (09:07)
[2017-07-16] MEDS: MULTIVIT,THER IRON,CA,FA & MIN 1 TABLET PO SCH (09:08)
[2017-07-16] MEDS: DOCUSATE SODIUM 100 MG CAPSULE PO SCH ×2 (09:08→21:40)
[2017-07-16] MEDS: HEPARIN 5,000 UNIT/ML VIAL SQ SCH ×2 (09:08→21:02)
[2017-07-16] MEDS: OSELTAMIVIR PHOSPHATE 75 MG CAPSULE PO SCH ×2 (09:08→21:02)
[2017-07-16] MEDS: GABAPENTIN 400 MG CAPSULE PO SCH ×3 (09:09→21:02)
[2017-07-16] MEDS: ACETAMINOPHEN 1,000 MG/100 ML BOTTLE IV PRN ×2 (12:11→20:25)
[2017-07-16] MEDS ORDERED: INSULIN LISPRO 1 UNIT/0.01 ML UNIT SQ SCH (17:32)
[2017-07-16] MEDS ORDERED: MAGNESIUM SULFATE 2 GM/50 ML BAG IV PRN (17:41)
[2017-07-16] MEDS ORDERED: LORazepam 2 MG/ML VIAL IV PRN (17:41)
[2017-07-16] MEDS ORDERED: POTASSIUM CHLORIDE 40 MEQ in DEXTROSE 5% IN WATER 500 ML IV PRN (17:41)
[2017-07-16] MEDS ORDERED: DEXTROSE 31 GM ORAL.SUSP PO PRN (17:41)
[2017-07-16] MEDS ORDERED: VANCOMYCIN PER PHARMACY IV SCH (17:41)
[2017-07-16] MEDS ORDERED: ONDANSETRON 4 MG/2 ML VIAL IV PRN (17:41)
[2017-07-16] MEDS ORDERED: DEXTROSE 50% 50 ML VIAL IV PRN (17:41)
[2017-07-16] MEDS ORDERED: guaiFENesin/CODEINE 10 ML UDC PO PRN (17:41)
[2017-07-16] MEDS ORDERED: POTASSIUM CHLORIDE 20 MEQ PACKET PO PRN (17:41)
--- NOTE | 2017-07-16 20:07 | Internal Med Progress Note ---
Medical - PN: Subj Patient information: Note initiated : 07/16/17 at 8:04 pm Service Date, if different from initiated Date: [] Patient: Javon Head 62 y/o M admitted on 07/13/17 for Hypoxic Resp Failure, Influenza Pneumonia. Chief Complaint: [] Interval history: patient admitted with acute influenza pneumonia/hypoxia respiratory failure. PaO2 to FiO2 ratio less than 200. Critically ill. On BiPAP.bilateral multifocal infiltrates. Started on bronchodilators/antibiotics. admitted to ICU. low threshold for mechanical ventilation if clinical deterioration noted.ABG 7.33/44/46 on 5 L oxygen. 07/14-patient on BiPAP. On 50% FiO2. Anxious requiring lorazepam. Large AA gradient.white count 7.4 with 12% bands.blood sugars improving down from 500 for 2-32 on basal prandial insulin. cultures negative so far. ontinue noninvasive ventilation. If clinical deterioration noted initiate mechanical ventilation. High-risk development of ARDS. Also high-risk superimposed pneumonia.continue antibiotic coverage/Tamiflu. Carlock score 16 07/15- patient doing well. On 30% FiO2 BiPAP. No overnight events. Tolerating diet. Anxious but cooperative. No telemetry events. Tachycardia. Resolved. Good urine output. No significant respiratory distress except for time spent off BiPAP. No concerns per staff 07/16: Patient seen and examined, no acute overnight events, needed BiPAP last night however at baseline settings. Tolerating it well. Patient still has fever but denies any acute complaints. He still has shortness of breath he still has fatigue and weakness. Chest x-ray shows improving infiltrates mildly. Echocardiogram done shows left ventricle is moderately dilated, left ventricular systolic function is severely reduced around 20-25%. Pulmonary hypertension with pressures between 50-70 mmHg. The patient has dilated IVC on the echo. Patient was hypoglycemic this morning which corrected after he ate some food. Lantus discontinued as the patient reports he is very sensitive to same. Just sliding scale insulin for now. Patient transferred to telemetry status Pertinent ROS: Denies headache, dizziness Denies chest pain, palpitations Improving cough or shortness of breath Denies abdominal pain, nausea or vomiting. - Constitutional Vitals: Vital Signs Temp Pulse Resp BP Pulse Ox 100.2 F H 98 H 18 138/81 93 07/16/17 15:49 07/16/17 19:11 07/16/17 19:11 07/16/17 15:49 07/16/17 19:11 Period Temp Pulse Resp BP Sys/Locke Pulse Ox Last 24 Hr 99.8 F-101.2 F 76-98 16-28 116-146/58-81 88-99 Intake and Output 07/16/17 07/16/17 07/16/17 05:59 13:59 21:59 Intake Total 1036 / 1036 660 / 660 Output Total 315 / 315 990 / 990 260 / 260 Balance -315 / -315 46 / 46 400 / 400 Intake & Output: Intake & Output 07/16/17 07/16/17 07/16/17 05:59 13:59 21:59 Intake Total 1036 / 1036 660 / 660 Output Total 315 / 315 990 / 990 260 / 260 Balance -315 / -315 46 / 46 400 / 400 Intake: IV 600 / 600 Vancomycin 1,500 mg In Sodium 500 / 500 Chloride 0.9% 500 ml @ 333.3 mls/hr IV Q24H [facility] Rx#: [id number] Oral 436 / 436 660 / 660 Output: Urine Catheter Amount 315 / 315 990 / 990 260 / 260 Other: Meal Breakfast Lunch Percent of Meal Consumed 100% 75% Feeding Ability Independent Independent Stool Size Small Large Stool Color Brown Brown Stool Consistency Soft Soft # Bowel Movements 1 # of times incontinent of 1 Bowels Exam: Constitutional; Afebrile, cooperative, alert, not in distress. Eyes- No icterus, , No periorbital swelling Ears- Ext ear normal, hearing normal to conversation. Neck- Midline trachea, supple Respiratory system: Air Entry equal on both sides bilateral expiratory wheeze, bilateral basilar crackles up to the mid lung. Speaking full sentences no accessory muscle use. CVS- Rate rhythm regular, S1,S2 heard, no gallop, no rub. Abdomen- Soft nontender abdomen, no organomegaly, no tenderness, no guarding or rigidity, [employer]- AOOx3, moving all extremities, no gross focal deficit noted. Medical - PN: Obj Da - Labs CBC & Chem 7: 07/16/17 04:09 07/16/17 04:09 Labs: Abnormal Lab Results 07/16/17 07/16/17 07/16/17 04:09 04:09 04:09 WBC 4.0 L RBC 3.50 L Hgb 12.0 L Hct 34.5 L MCH 34.2 H Plt Count 100 L MPV 10.5 H Band Neutrophils % Lymphocytes % Myelocytes % Platelet Estimate Decreased A RBC Morphology RBC Fragments BUN 36 H Creatinine 1.6 H Glucose 64 L Calcium 7.6 L Phosphorus 2.2 L GGT 68 H ALT Lactate Dehydrogenase 306 H Troponin T NT-Pro-B Natriuret Pep 9969.0 H Total Protein 4.8 L Albumin 2.8 L Globulin 2.0 L 07/15/17 07/15/17 07/15/17 08:04 04:00 04:00 WBC RBC 3.75 L Hgb 12.8 L Hct 37.2 L MCH 34.1 H Plt Count 101 L MPV 10.6 H Band Neutrophils % 15 H Lymphocytes % Myelocytes % 1 H Platelet Estimate Decreased A RBC Morphology RBC Fragments BUN 45 H Creatinine 1.9 H Glucose 284 H Calcium 8.3 L Phosphorus GGT 69 H ALT Lactate Dehydrogenase 317 H Troponin T 0.06 H* NT-Pro-B Natriuret Pep Total Protein 5.6 L Albumin 3.0 L Globulin 07/14/17 07/14/17 07/14/17 14:10 03:50 03:50 WBC RBC 3.69 L Hgb 12.6 L Hct 36.4 L MCH 34.2 H Plt Count 127 L MPV 10.8 H Band Neutrophils % 12 H Lymphocytes % 8 L Myelocytes % Platelet Estimate Decreased A RBC Morphology Abnorm A RBC Fragments Occ A BUN 41 H Creatinine 2.1 H Glucose 232 H Calcium 8.3 L Phosphorus 2.4 L GGT 66 H ALT 42 H Lactate Dehydrogenase 282 H Troponin T 0.07 H* NT-Pro-B Natriuret Pep Total Protein Albumin Globulin Meds: Medications Acetaminophen (Tylenol) 650 mg PO Q4-6HP PRN PRN Reason: PAIN/FEVER > 101 Albuterol/Ipratropium (Duoneb) 3 ml NEB Q4HRT [facility] Last Admin: 07/16/17 18:54 Dose: 3 ml Budesonide (Pulmicort) 0.5 mg NEB Q12 [facility] Last Admin: 07/16/17 19:10 Dose: 0.5 mg Cefepime HCl (Maxipime) 2 gm IV DAILY [facility] Dextrose (Dextrose 50%) 0 ml IV UD PRN PRN Reason: Hypoglycemia Diagnostic Test (Pha) (Accu-Chek) 1 each FS ACHS [facility] Docusate Sodium (Colace) 100 mg PO BID [facility] Furosemide (Lasix) 20 mg IV DAILY [facility] Gabapentin (Neurontin) 400 mg PO TID [facility] Glucose (Insta-Glucose) 15 gm PO PRN PRN PRN Reason: Hypoglycemia Guaifenesin/Codeine Phosphate (Robitussin Ac) 10 ml PO Q4HP PRN PRN Reason: Cough Heparin Sodium (Porcine) (Heparin) 5,000 unit SQ Q12 [facility] Potassium Chloride 40 meq/ (Dextrose) 520 mls @ 130 mls/hr IV UD PRN PRN Reason: K+ = or < 3.5 Magnesium Sulfate (Magnesium Sulfate) 2 gm in 50 mls @ 50 mls/hr IV UD PRN PRN Reason: MG = or < 1.7 Acetaminophen (Ofirmev) 1,000 mg in 100 mls @ 200 mls/hr IV Q6HP PRN PRN Reason: PAIN/FEVER > 101 Vancomycin HCl 1,500 mg/ (Sodium Chloride) 500 mls @ 333.3 mls/hr IV Q24H [facility] Insulin Human Lispro (Humalog) 0 unit SQ ACHS [facility] PRN Reason: Protocol Last Admin: 07/16/17 17:54 Dose: 12 unit Iron Carb/Multivit/Piute/Folic Acid (Multivitamin W/Minerals) 1 tab PO DAILY [facility] Levothyroxine Sodium (Synthroid) 150 mcg PO ACB [facility] Lorazepam (Ativan) 0.25 mg IV Q4HP PRN PRN Reason: ANXIETY/SEDATION Ondansetron HCl (Zofran) 4 mg IV Q4-6HP PRN PRN Reason: Nausea And Vomiting Oseltamivir Phosphate (Tamiflu) 75 mg PO BID [facility] Potassium Chloride (Klor-Con) 40 meq PO DAILYP PRN PRN Reason: K+ < 3.5 Senna/Docusate Sodium (Senna Plus Tablet) 1 tab PO HS [facility] Sodium Chloride (Saline Flush) 10 ml IV Q8 [facility] Tamsulosin HCl (Flomax) 0.4 mg PO HS [facility] Trazodone HCl (Desyrel) 50 mg PO HSP PRN PRN Reason: Insomnia Vancomycin HCl (Vancomycin Per Pharmacy) 1 order IV UD [facility] Medical - PN: A/P - Time Spent With Patient Total time spent is greater than 50% in coordination of care (as documented) at patient's floor/unit and/or counseling patient: - Narrative A/P Narrative: A/P Acute hypoxic respiratory failure Influenza Pneumonia Acute pulmonary edema Congestive Heart failuire, Systolic, Acute Diabetes, with Hyperglycemia Hypoglycemia BPH Hypertension Hypothyroidism pancytopenia peripheral Neuropathy Plan continue cardiac monitoring Continue bipap support Continue tamiflu and antibiotics for pneumonia, clincally improving IV lasix daily, bp stable, Pt is still febrile, due to pna D/c lantus due to low glucose values, med dose sliding scale continue gabapentin for neuropathy Continue flomax,/ levothyroxine. DVT hep sq Diabetic diet Full code. Medical - PN: Qual - VTE Deep Vein Thrombosis/Pulmonary Embolism Present on Admission: No
[2017-07-16] MEDS ORDERED: traZODone HCL 50 MG TABLET PO PRN (21:00)
[2017-07-16] MEDS: TAMSULOSIN 0.4 MG CAPSULE PO SCH (21:02)
[2017-07-16] MEDS: SENNOSIDES/DOCUSATE SODIUM 1 TAB TABLET PO SCH (21:03)
[2017-07-16] MEDS ORDERED: IBUPROFEN 400 MG TABLET PO ONE (21:26)
[2017-07-16] MEDS ORDERED: IBUPROFEN 600 MG TABLET PO ONE (21:50)
[2017-07-17] MEDS: IPRATROPIUM/ALBUTEROL 3 ML AMPUL.NEB NEB SCH ×6 (03:27→23:17)
[2017-07-17] MEDS: 0.9 % SODIUM CHLORIDE 10 ML SYRINGE IV SCH ×4 (05:17→21:31)
[2017-07-17 05:40] LABS: Mean Cell Volume 98.3 fL (80.0-100.0); Mean Corpuscular HGB Conc 34.1 g/dL (31.0-36.0); Mean Corpuscular Hemoglobin 33.5 pg (26.0-34.0); Platelet Count 97 K/mcL (140-440); RBC 3.63 M/mcL (4.50-5.90); Red Cell Distribution Width 13.4 % (11.5-14.5)
[2017-07-17 05:58] LABS: ALT/SGPT 25 U/l (0-40); Albumin 2.8 gm/dL (3.2-5.2); Albumin/Globulin Ratio 1.2 (1.0-2.3); Alkaline Phosphatase 103 U/L (39-117); Bilirubin,Direct < 0.2 mg/dL (0.0-0.3); Blood Urea Nitrogen 35 mg/dl (8-23); Gamma Glutamyl Transpeptidase 116 U/L (8-61); Uric Acid 4.9 mg/dL (2.5-8.0)
[2017-07-17 07:46] LABS: Band Neutrophils % 4 % (0-10); Eosinophils % (Manual) 3 % (0-7); Lymphocytes % 17 % (15-49); Monocytes % (Manual) 6 % (1-12); Platelet Estimate DECREASED (NORMAL); RBC Morphology NORMAL (NORMAL); Segmented Neutrophils % 69 % (38-78)
[2017-07-17] MEDS: LEVOTHYROXINE 150 MCG TABLET PO SCH (08:01)
[2017-07-17] MEDS: BUDESONIDE 0.5 MG/2 ML AMPUL.NEB NEB SCH ×2 (08:02→18:59)
[2017-07-17] MEDS: VANCOMYCIN 1,250 MG in 0.9 % SODIUM CHLORIDE 500 ML IV SCH (08:12)
[2017-07-17] MEDS: INSULIN LISPRO 1 UNIT/0.01 ML UNIT SQ SCH ×5 (08:29→23:08)
[2017-07-17] MEDS ORDERED: FUROSEMIDE 20 MG/2 ML VIAL IV SCH (09:00)
[2017-07-17] MEDS: CEFEPIME 2 GM VIAL IV SCH (09:27)
[2017-07-17] MEDS: DOCUSATE SODIUM 100 MG CAPSULE PO SCH ×3 (09:27→21:06)
[2017-07-17] MEDS: HEPARIN 5,000 UNIT/ML VIAL SQ SCH ×2 (09:27→21:07)
[2017-07-17] MEDS: OSELTAMIVIR PHOSPHATE 75 MG CAPSULE PO SCH ×2 (09:28→20:03)
[2017-07-17] MEDS: GABAPENTIN 400 MG CAPSULE PO SCH ×3 (09:28→20:04)
[2017-07-17] MEDS: MULTIVIT,THER IRON,CA,FA & MIN 1 TABLET PO SCH (09:28)
[2017-07-17] MEDS: VANCOMYCIN 1,500 MG in 0.9 % SODIUM CHLORIDE 500 ML IV SCH (10:25)
[2017-07-17] MEDS ORDERED: INSULIN NPH, HUMAN 1 UNIT/0.01 ML UNIT SQ ONE (14:22)
--- NOTE | 2017-07-17 16:00 | Internal Med Progress Note ---
Medical - PN: Subj Patient information: Note initiated : 07/17/17 at 3:57 pm Service Date, if different from initiated Date: [] Patient: Javon Head 62 y/o M admitted on 07/13/17 for Hypoxic Resp Failure, Influenza Pneumonia. Chief Complaint: [] Interval history: patient admitted with acute influenza pneumonia/hypoxia respiratory failure. PaO2 to FiO2 ratio less than 200. Critically ill. On BiPAP.bilateral multifocal infiltrates. Started on bronchodilators/antibiotics. admitted to ICU. low threshold for mechanical ventilation if clinical deterioration noted.ABG 7.33/44/46 on 5 L oxygen. 07/14-patient on BiPAP. On 50% FiO2. Anxious requiring lorazepam. Large AA gradient.white count 7.4 with 12% bands.blood sugars improving down from 500 for 2-32 on basal prandial insulin. cultures negative so far. ontinue noninvasive ventilation. If clinical deterioration noted initiate mechanical ventilation. High-risk development of ARDS. Also high-risk superimposed pneumonia.continue antibiotic coverage/Tamiflu. [place] score 16 07/15- patient doing well. On 30% FiO2 BiPAP. No overnight events. Tolerating diet. Anxious but cooperative. No telemetry events. Tachycardia. Resolved. Good urine output. No significant respiratory distress except for time spent off BiPAP. No concerns per staff 07/16: Patient seen and examined, no acute overnight events, needed BiPAP last night however at baseline settings. Tolerating it well. Patient still has fever but denies any acute complaints. He still has shortness of breath he still has fatigue and weakness. Chest x-ray shows improving infiltrates mildly. Echocardiogram done shows left ventricle is moderately dilated, left ventricular systolic function is severely reduced around 20-25%. Pulmonary hypertension with pressures between 50-70 mmHg. The patient has dilated IVC on the echo. Patient was hypoglycemic this morning which corrected after he ate some food. Lantus discontinued as the patient reports he is very sensitive to same. Just sliding scale insulin for now. Patient transferred to telemetry status July 17 Patient seen and examined no acute overnight events, tolerated BiPAP well last night. Patient had a high-grade fever overnight needing Tylenol as well as 1 dose of Motrin. Patient's kidney function slightly worse today creatinine is 1.7. Patient's glucose values were high as Lantus was discontinued as it reported that patient had neuropathy to same. I reviewed with him the need for long-acting insulin and he is agreed to Lantus again we will stop if he develops numbness in his lower extremities. Patient continues on IV antibiotics. Echo findings reviewed with the patient explained to him that he has severe congestive heart failure patient denies any history of CHF in the past. Educated that he will need to be evaluated by a human resources training manager as an outpatient Pertinent ROS: Denies headache, dizziness Denies chest pain, palpitations Improving cough or shortness of breath Denies abdominal pain, nausea or vomiting. - Constitutional Vitals: Vital Signs Temp Pulse Resp BP Pulse Ox 98.6 F 88 18 121/65 95 07/17/17 12:00 07/17/17 15:03 07/17/17 15:03 07/17/17 12:00 07/17/17 15:01 Period Temp Pulse Resp BP Sys/Locke Pulse Ox Last 24 Hr 98.6 F-102.9 F 78-98 17-24 121-153/63-81 88-99 Intake and Output 07/17/17 07/17/17 07/17/17 05:59 13:59 21:59 Intake Total 700 / 700 440 / 440 500 / 500 Output Total 900 / 900 1650 / 1650 Balance -200 / -200 -1210 / -1210 500 / 500 Weight 171 lb 11.2 oz Patient Weight 07/18/17 05:59 Weight 171 lb 11.2 oz Intake & Output: Intake & Output 07/17/17 07/17/17 07/17/17 05:59 13:59 21:59 Intake Total 700 / 700 440 / 440 500 / 500 Output Total 900 / 900 1650 / 1650 Balance -200 / -200 -1210 / -1210 500 / 500 Weight 171 lb 11.2 oz Intake: Oral 440 / 440 500 / 500 GI Tube Flush 700 / 700 Output: Urine Catheter Amount 900 / 900 1650 / 1650 Other: Meal Breakfast Lunch Percent of Meal Consumed 100% 100% Feeding Ability Assist with Tray Set Up Assist with Tray Set Up Stool Size Small Stool Color Brown Stool Consistency Soft # Bowel Movements 1 # of times incontinent of 1 Bowels Exam: Constitutional; Afebrile, cooperative, alert, not in distress. Eyes- No icterus, , No periorbital swelling Ears- Ext ear normal, hearing normal to conversation. Neck- Midline trachea, supple Respiratory system: Air Entry equal on both sides, bilateral crackles to midlung , bilateral expiratory wheezes able to speak full sentences no accessory muscle use CVS- Rate rhythm regular, S1,S2 heard, no gallop, no rub. Abdomen- Soft nontender abdomen, no organomegaly, no tenderness, no guarding or rigidity, AUTOCAD DETAILER- AOOx3, moving all extremities, no gross focal deficit noted. Medical - PN: Obj Da - Labs CBC & Chem 7: 07/17/17 03:41 07/17/17 03:41 Labs: Abnormal Lab Results 07/17/17 07/17/17 07/16/17 03:41 03:41 04:09 WBC 4.2 L RBC 3.63 L Hgb 12.2 L Hct 35.7 L MCH Plt Count 97 L MPV 10.5 H Band Neutrophils % Myelocytes % Platelet Estimate Decreased A Chloride 95 L BUN 35 H Creatinine 1.7 H Glucose 407 H Calcium 8.0 L Phosphorus GGT 116 H Lactate Dehydrogenase 351 H Troponin T NT-Pro-B Natriuret Pep 9969.0 H Total Protein 5.2 L Albumin 2.8 L Globulin 07/16/17 07/16/17 07/15/17 04:09 04:09 08:04 WBC 4.0 L RBC 3.50 L Hgb 12.0 L Hct 34.5 L MCH 34.2 H Plt Count 100 L MPV 10.5 H Band Neutrophils % Myelocytes % Platelet Estimate Decreased A Chloride BUN 36 H Creatinine 1.6 H Glucose 64 L Calcium 7.6 L Phosphorus 2.2 L GGT 68 H Lactate Dehydrogenase 306 H Troponin T 0.06 H* NT-Pro-B Natriuret Pep Total Protein 4.8 L Albumin 2.8 L Globulin 2.0 L 07/15/17 07/15/17 04:00 04:00 WBC RBC 3.75 L Hgb 12.8 L Hct 37.2 L MCH 34.1 H Plt Count 101 L MPV 10.6 H Band Neutrophils % 15 H Myelocytes % 1 H Platelet Estimate Decreased A Chloride BUN 45 H Creatinine 1.9 H Glucose 284 H Calcium 8.3 L Phosphorus GGT 69 H Lactate Dehydrogenase 317 H Troponin T NT-Pro-B Natriuret Pep Total Protein 5.6 L Albumin 3.0 L Globulin Meds: Medications Acetaminophen (Tylenol) 650 mg PO Q4-6HP PRN PRN Reason: PAIN/FEVER > 101 Albuterol/Ipratropium (Duoneb) 3 ml NEB Q4HRT [facility] Last Admin: 07/17/17 14:51 Dose: 3 ml Budesonide (Pulmicort) 0.5 mg NEB Q12 [facility] Last Admin: 07/17/17 08:02 Dose: 0.5 mg Cefepime HCl (Maxipime) 2 gm IV DAILY [facility] Last Admin: 07/17/17 09:27 Dose: 2 gm Dextrose (Dextrose 50%) 0 ml IV UD PRN PRN Reason: Hypoglycemia Diagnostic Test (Pha) (Accu-Chek) 1 each FS ACHS [facility] Last Admin: 07/17/17 14:15 Dose: 1 each Docusate Sodium (Colace) 100 mg PO BID [facility] Last Admin: 07/17/17 10:00 Dose: Not Given Furosemide (Lasix) 20 mg IV DAILY [facility] Last Admin: 07/17/17 09:27 Dose: 20 mg Gabapentin (Neurontin) 400 mg PO TID [facility] Last Admin: 07/17/17 09:28 Dose: 400 mg Glucose (Insta-Glucose) 15 gm PO PRN PRN PRN Reason: Hypoglycemia Guaifenesin/Codeine Phosphate (Robitussin Ac) 10 ml PO Q4HP PRN PRN Reason: Cough Heparin Sodium (Porcine) (Heparin) 5,000 unit SQ Q12 [facility] Last Admin: 07/17/17 09:27 Dose: 5,000 unit Potassium Chloride 40 meq/ (Dextrose) 520 mls @ 130 mls/hr IV UD PRN PRN Reason: K+ = or < 3.5 Magnesium Sulfate (Magnesium Sulfate) 2 gm in 50 mls @ 50 mls/hr IV UD PRN PRN Reason: MG = or < 1.7 Acetaminophen (Ofirmev) 1,000 mg in 100 mls @ 200 mls/hr IV Q6HP PRN PRN Reason: PAIN/FEVER > 101 Last Infusion: 07/16/17 21:20 Dose: Infused Vancomycin HCl 1,500 mg/ (Sodium Chloride) 500 mls @ 333.3 mls/hr IV Q24H [facility] Last Admin: 07/17/17 10:25 Dose: 333.3 mls/hr Insulin Glargine (Lantus) 10 unit SQ BID [facility] Insulin Human Lispro (Humalog) 0 unit SQ ACHS EMELI PRN Reason: Protocol Last Admin: 07/17/17 11:22 Dose: 14 unit Iron Carb/Multivit/[place]/Folic Acid (Multivitamin W/Minerals) 1 tab PO DAILY [facility] Last Admin: 07/17/17 09:28 Dose: 1 tab Levothyroxine Sodium (Synthroid) 150 mcg PO ACB [facility] Last Admin: 07/17/17 08:01 Dose: 150 mcg Lorazepam (Ativan) 0.25 mg IV Q4HP PRN PRN Reason: ANXIETY/SEDATION Ondansetron HCl (Zofran) 4 mg IV Q4-6HP PRN PRN Reason: Nausea And Vomiting Oseltamivir Phosphate (Tamiflu) 75 mg PO BID [facility] Last Admin: 07/17/17 09:28 Dose: 75 mg Potassium Chloride (Klor-Con) 40 meq PO DAILYP PRN PRN Reason: K+ < 3.5 Senna/Docusate Sodium (Senna Plus Tablet) 1 tab PO HS [facility] Last Admin: 07/16/17 21:03 Dose: Not Given Sodium Chloride (Saline Flush) 10 ml IV Q8 [facility] Last Admin: 07/17/17 14:37 Dose: 10 ml Tamsulosin HCl (Flomax) 0.4 mg PO HS [facility] Last Admin: 07/16/17 21:02 Dose: 0.4 mg Trazodone HCl (Desyrel) 50 mg PO HSP PRN PRN Reason: Insomnia Vancomycin HCl (Vancomycin Per Pharmacy) 1 order IV UD [facility] Medical - PN: A/P - Time Spent With Patient Total time spent is greater than 50% in coordination of care (as documented) at patient's floor/unit and/or counseling patient: - Narrative A/P Narrative: A/P Acute hypoxic respiratory failure Influenza Pneumonia Acute pulmonary edema Congestive Heart failuire, Systolic, Acute Diabetes, with Hyperglycemia Hypoglycemia BPH Hypertension Hypothyroidism pancytopenia peripheral Neuropathy Plan continue cardiac monitoring Continue bipap support, try to keep on nasal cannula and keep BiPAP support on an as-needed basis Continue tamiflu and antibiotics for pneumonia, clincally improving IV lasix daily, bp stable, consider initiating beta julian tomorrow if the blood pressure remained stable Pt is still febrile, due to pna Given very high glucose values start Lantus again use 10 units twice a day, using pH during the day today I relieve some of the glucose values is related to use of IV steroids continue gabapentin for neuropathy Continue flomax,/ levothyroxine. DVT hep sq Diabetic diet Full code. Medical - PN: Qual - VTE Deep Vein Thrombosis/Pulmonary Embolism Present on Admission: No
[2017-07-17] MEDS: INSULIN GLARGINE, HUMAN 1 UNIT/0.01 ML SQ SCH (20:03)
[2017-07-17] MEDS: TAMSULOSIN 0.4 MG CAPSULE PO SCH (20:03)
[2017-07-17] MEDS: SENNOSIDES/DOCUSATE SODIUM 1 TAB TABLET PO SCH (21:07)
[2017-07-17] MEDS: ACETAMINOPHEN 1,000 MG/100 ML BOTTLE IV PRN (21:18)
[2017-07-18] MEDS: IPRATROPIUM/ALBUTEROL 3 ML AMPUL.NEB NEB SCH ×6 (03:04→23:23)
[2017-07-18] MEDS: 0.9 % SODIUM CHLORIDE 10 ML SYRINGE IV SCH ×3 (04:19→22:15)
[2017-07-18 05:01] LABS: Mean Corpuscular HGB Conc 34.6 g/dL (31.0-36.0); Mean Corpuscular Hemoglobin 33.9 pg (26.0-34.0); Platelet Count 93 K/mcL (140-440); RBC 3.39 M/mcL (4.50-5.90); Red Cell Distribution Width 13.3 % (11.5-14.5)
[2017-07-18 05:16] LABS: ALT/SGPT 27 U/l (0-40); Albumin 2.9 gm/dL (3.2-5.2); Albumin/Globulin Ratio 1.3 (1.0-2.3); Alkaline Phosphatase 113 U/L (39-117); Bilirubin,Direct < 0.2 mg/dL (0.0-0.3); Blood Urea Nitrogen 37 mg/dl (8-23); Gamma Glutamyl Transpeptidase 132 U/L (8-61); Uric Acid 4.9 mg/dL (2.5-8.0)
[2017-07-18] MEDS ORDERED: INSULIN, 75/25 NPL/LISPRO 1 UNIT/0.01 ML UNIT SQ SCH (07:30)
[2017-07-18 07:39] LABS: Band Neutrophils % 3 % (0-10); Eosinophils % (Manual) 4 % (0-7); Lymphocytes % 24 % (15-49); Monocytes % (Manual) 4 % (1-12); Platelet Estimate DECREASED (NORMAL); RBC Morphology NORMAL (NORMAL); Segmented Neutrophils % 65 % (38-78)
[2017-07-18] MEDS: BUDESONIDE 0.5 MG/2 ML AMPUL.NEB NEB SCH ×2 (07:43→19:09)
[2017-07-18] MEDS: LEVOTHYROXINE 150 MCG TABLET PO SCH (08:28)
[2017-07-18] MEDS: INSULIN GLARGINE, HUMAN 1 UNIT/0.01 ML SQ SCH (08:58)
[2017-07-18] MEDS: INSULIN LISPRO 1 UNIT/0.01 ML UNIT SQ SCH (08:58)
[2017-07-18] MEDS ORDERED: FUROSEMIDE 40 MG/4 ML VIAL IV SCH (09:00)
[2017-07-18] MEDS ORDERED: CHLOROTHIAZIDE SODIUM 500 MG VIAL IV ONE (09:00)
[2017-07-18] MEDS: FUROSEMIDE 40 MG/4 ML VIAL IV SCH (09:39)
[2017-07-18] MEDS: HEPARIN 5,000 UNIT/ML VIAL SQ SCH ×2 (09:40→20:49)
[2017-07-18] MEDS: MULTIVIT,THER IRON,CA,FA & MIN 1 TABLET PO SCH (09:40)
[2017-07-18] MEDS: GABAPENTIN 400 MG CAPSULE PO SCH ×3 (09:40→20:48)
[2017-07-18] MEDS: CEFEPIME 2 GM VIAL IV SCH (09:40)
[2017-07-18] MEDS: OSELTAMIVIR PHOSPHATE 75 MG CAPSULE PO SCH ×2 (09:41→20:48)
[2017-07-18] MEDS: DOCUSATE SODIUM 100 MG CAPSULE PO SCH ×2 (09:41→21:40)
--- NOTE | 2017-07-18 10:04 | XRay Report ---
INDICATION: Hypoxia. Respiratory failure. TECHNIQUE: AP chest x-ray,portable semiupright COMPARISON: Previous chest x-rays dated 07/16/2017, 07/15/2017, 07/13/2017 FINDINGS:Mild cardiomegaly. Prominent pulmonary vascularity and diffuse pulmonary parenchymal infiltrates. Appearance remains consistent with congestive heart failure. Right base appears slightly improved but the right upper lobe appears slightly worse. No other interval change. Continued follow-up recommended. IMPRESSION: 1. Mild cardiomegaly 2. Bilateral pulmonary parenchymal infiltrates. Findings are probably related to pulmonary edema although pneumonia is not excluded Interpreted and Authenticated by: Rajendra Roberts 07/18/17
[2017-07-18] MEDS: VANCOMYCIN 1,500 MG in 0.9 % SODIUM CHLORIDE 500 ML IV SCH (10:29)
--- NOTE | 2017-07-18 12:49 | Internal Med Progress Note ---
Medical - PN: Subj Patient information: Note initiated : 07/18/17 at 12:43 pm Service Date, if different from initiated Date: [] Patient: Javon Head 62 y/o M admitted on 07/13/17 for Hypoxic Resp Failure, Influenza Pneumonia. Chief Complaint: [] Interval history: patient admitted with acute influenza pneumonia/hypoxia respiratory failure. PaO2 to FiO2 ratio less than 200. Critically ill. On BiPAP.bilateral multifocal infiltrates. Started on bronchodilators/antibiotics. admitted to ICU. low threshold for mechanical ventilation if clinical deterioration noted.ABG 7.33/44/46 on 5 L oxygen. 07/14-patient on BiPAP. On 50% FiO2. Anxious requiring lorazepam. Large AA gradient.white count 7.4 with 12% bands.blood sugars improving down from 500 for 2-32 on basal prandial insulin. cultures negative so far. ontinue noninvasive ventilation. If clinical deterioration noted initiate mechanical ventilation. High-risk development of ARDS. Also high-risk superimposed pneumonia.continue antibiotic coverage/Tamiflu. [place] score 16 07/15- patient doing well. On 30% FiO2 BiPAP. No overnight events. Tolerating diet. Anxious but cooperative. No telemetry events. Tachycardia. Resolved. Good urine output. No significant respiratory distress except for time spent off BiPAP. No concerns per staff 07/16: Patient seen and examined, no acute overnight events, needed BiPAP last night however at baseline settings. Tolerating it well. Patient still has fever but denies any acute complaints. He still has shortness of breath he still has fatigue and weakness. Chest x-ray shows improving infiltrates mildly. Echocardiogram done shows left ventricle is moderately dilated, left ventricular systolic function is severely reduced around 20-25%. Pulmonary hypertension with pressures between 50-70 mmHg. The patient has dilated IVC on the echo. Patient was hypoglycemic this morning which corrected after he ate some food. Lantus discontinued as the patient reports he is very sensitive to same. Just sliding scale insulin for now. Patient transferred to telemetry status July 17 Patient seen and examined no acute overnight events, tolerated BiPAP well last night. Patient had a high-grade fever overnight needing Tylenol as well as 1 dose of Motrin. Patient's kidney function slightly worse today creatinine is 1.7. Patient's glucose values were high as Lantus was discontinued as it reported that patient had neuropathy to same. I reviewed with him the need for long-acting insulin and he is agreed to Lantus again we will stop if he develops numbness in his lower extremities. Patient continues on IV antibiotics. Echo findings reviewed with the patient explained to him that he has severe congestive heart failure patient denies any history of CHF in the past. Educated that he will need to be evaluated by a bicycle subassembler as an outpatient july 18 Patient seen examined, no acute overnight events, was on bipap overnight, but pt notes he was not very short of breath he is on 8-10L oxygen via nasal canula Hiflo The patient denies any complaints his glucose is very high and he would prefer to be back on his home insulin resume humalog 75/25 Error in previous documentation, pt is not on steroids The patient Chest X ray still has moise infitrates, pt still has high grade fever, microbiology is negative so far Wbc is low normal, pt has low grade pancytopenia, all indicating viral infection , Pt has influenza positive Will get Chest CT today Pertinent ROS: Denies headache, dizziness Denies chest pain, palpitations Denies cough or shortness of breath Denies abdominal pain, nausea or vomiting. - Constitutional Vitals: Vital Signs Temp Pulse Resp BP Pulse Ox 99.5 F H 85 18 133/74 92 07/18/17 08:00 07/18/17 11:43 07/18/17 11:43 07/18/17 08:00 07/18/17 08:00 Period Temp Pulse Resp BP Sys/Locke Pulse Ox Last 24 Hr 99.2 F-102.4 F 75-96 16-21 129-155/68-74 91-96 Intake and Output 07/17/17 07/18/17 07/18/17 21:59 05:59 13:59 Intake Total 1900 / 1900 150 / 150 800 / 800 Output Total 150 / 150 1999 / 1999 Balance 1750 / 1750 150 / 150 -1200 / -1200 Weight 170 lb 12.8 oz Intake & Output: Intake & Output 07/17/17 07/18/17 07/18/17 21:59 05:59 13:59 Intake Total 1900 / 1900 150 / 150 800 / 800 Output Total 150 / 150 1999 / 1999 Balance 1750 / 1750 150 / 150 -1200 / -1200 Weight 170 lb 12.8 oz Intake: IV 150 / 150 500 / 500 Vancomycin 1,500 mg In Sodium 500 / 500 Chloride 0.9% 500 ml @ 333.3 mls/hr IV Q24H [facility] Rx#: [id number] Oral 1900 / 1900 300 / 300 Output: Urine Catheter Amount 150 / 150 1999 / 1999 Other: Meal Dinner Breakfast Percent of Meal Consumed 100% Feeding Ability Assist with Tray Set Up Exam: Constitutional; Afebrile, cooperative, alert, not in distress. Eyes- No icterus, , No periorbital swelling Ears- Ext ear normal, hearing normal to conversation. Neck- Midline trachea, supple Respiratory system: Air Entry equal on both sides, no wheeze, patient has moise craclkes predominantly at bases. CVS- Rate rhythm regular, S1,S2 heard, no gallop, no rub. Abdomen- Soft nontender abdomen, no organomegaly, no tenderness, no guarding or rigidity, DIRECTOR INDEX- AOOx3, moving all extremities, no gross focal deficit noted. Medical - PN: Obj Da - Labs CBC & Chem 7: 07/18/17 03:42 07/18/17 03:42 Labs: Abnormal Lab Results 07/18/17 07/18/17 07/17/17 03:42 03:42 03:41 WBC 4.4 L RBC 3.39 L Hgb 11.5 L Hct 33.2 L MCH Plt Count 93 L MPV Platelet Estimate Decreased A Chloride 95 L Carbon Dioxide 31 H BUN 37 H 35 H Creatinine 1.6 H 1.7 H Glucose 199 H 407 H Calcium 8.2 L 8.0 L Phosphorus GGT 132 H 116 H AST 38 H Lactate Dehydrogenase 375 H 351 H Troponin T NT-Pro-B Natriuret Pep Total Protein 5.1 L 5.2 L Albumin 2.9 L 2.8 L Globulin 07/17/17 07/16/17 07/16/17 03:41 04:09 04:09 WBC 4.2 L RBC 3.63 L Hgb 12.2 L Hct 35.7 L MCH Plt Count 97 L MPV 10.5 H Platelet Estimate Decreased A Chloride Carbon Dioxide BUN 36 H Creatinine 1.6 H Glucose 64 L Calcium 7.6 L Phosphorus 2.2 L GGT 68 H AST Lactate Dehydrogenase 306 H Troponin T NT-Pro-B Natriuret Pep 9969.0 H Total Protein 4.8 L Albumin 2.8 L Globulin 2.0 L 07/16/17 07/15/17 04:09 08:04 WBC 4.0 L RBC 3.50 L Hgb 12.0 L Hct 34.5 L MCH 34.2 H Plt Count 100 L MPV 10.5 H Platelet Estimate Decreased A Chloride Carbon Dioxide BUN Creatinine Glucose Calcium Phosphorus GGT AST Lactate Dehydrogenase Troponin T 0.06 H* NT-Pro-B Natriuret Pep Total Protein Albumin Globulin Meds: Medications Acetaminophen (Tylenol) 650 mg PO Q4-6HP PRN PRN Reason: PAIN/FEVER > 101 Albuterol/Ipratropium (Duoneb) 3 ml NEB Q4HRT [facility] Last Admin: 07/18/17 11:35 Dose: 3 ml Budesonide (Pulmicort) 0.5 mg NEB Q12 [facility] Last Admin: 07/18/17 07:43 Dose: 0.5 mg Cefepime HCl (Maxipime) 2 gm IV DAILY [facility] Last Admin: 07/18/17 09:40 Dose: 2 gm Dextrose (Dextrose 50%) 0 ml IV UD PRN PRN Reason: Hypoglycemia Diagnostic Test (Pha) (Accu-Chek) 1 each FS ACHS [facility] Last Admin: 07/18/17 08:58 Dose: 1 each Docusate Sodium (Colace) 100 mg PO BID [facility] Last Admin: 07/18/17 09:41 Dose: 100 mg Furosemide (Lasix) 40 mg IV DAILY [facility] Last Admin: 07/18/17 09:39 Dose: 40 mg Gabapentin (Neurontin) 400 mg PO TID [facility] Last Admin: 07/18/17 09:40 Dose: 400 mg Glucose (Insta-Glucose) 15 gm PO PRN PRN PRN Reason: Hypoglycemia Guaifenesin/Codeine Phosphate (Robitussin Ac) 10 ml PO Q4HP PRN PRN Reason: Cough Heparin Sodium (Porcine) (Heparin) 5,000 unit SQ Q12 [facility] Last Admin: 07/18/17 09:40 Dose: 5,000 unit Potassium Chloride 40 meq/ (Dextrose) 520 mls @ 130 mls/hr IV UD PRN PRN Reason: K+ = or < 3.5 Magnesium Sulfate (Magnesium Sulfate) 2 gm in 50 mls @ 50 mls/hr IV UD PRN PRN Reason: MG = or < 1.7 Last Infusion: 07/18/17 04:18 Dose: Infused Acetaminophen (Ofirmev) 1,000 mg in 100 mls @ 200 mls/hr IV Q6HP PRN PRN Reason: PAIN/FEVER > 101 Last Infusion: 07/17/17 22:07 Dose: Infused Vancomycin HCl 1,500 mg/ (Sodium Chloride) 500 mls @ 333.3 mls/hr IV Q24H [facility] Last Admin: 07/18/17 10:29 Dose: 333 mls/hr Insulin Lispro Protam/Lispro Human (Humalog 75/25) 15 unit SQ [facility] Iron Carb/Multivit/Registered Nurse First Assistant/Folic Acid (Multivitamin W/Minerals) 1 tab PO DAILY [facility] Last Admin: 07/18/17 09:40 Dose: 1 tab Levothyroxine Sodium (Synthroid) 150 mcg PO B [facility] Last Admin: 07/18/17 08:28 Dose: 150 mcg Lorazepam (Ativan) 0.25 mg IV Q4HP PRN PRN Reason: ANXIETY/SEDATION Ondansetron HCl (Zofran) 4 mg IV Q4-6HP PRN PRN Reason: Nausea And Vomiting Oseltamivir Phosphate (Tamiflu) 75 mg PO BID [facility] Last Admin: 07/18/17 09:41 Dose: 75 mg Potassium Chloride (Klor-Con) 40 meq PO DAILYP PRN PRN Reason: K+ < 3.5 Senna/Docusate Sodium (Senna Plus Tablet) 1 tab PO [facility] Last Admin: 07/17/17 21:07 Dose: Not Given Sodium Chloride (Saline Flush) 10 ml IV Q8 [facility] Last Admin: 07/18/17 04:19 Dose: 10 ml Tamsulosin HCl (Flomax) 0.4 mg PO [facility] Last Admin: 07/17/17 20:03 Dose: 0.4 mg Trazodone HCl (Desyrel) 50 mg PO HSP PRN PRN Reason: Insomnia Vancomycin HCl (Vancomycin Per Pharmacy) 1 order IV [facility] Medical - PN: A/P - Time Spent With Patient Total time spent is greater than 50% in coordination of care (as documented) at patient's floor/unit and/or counseling patient: - Narrative A/P Narrative: A/P Acute hypoxic respiratory failure Influenza Pneumonia Acute pulmonary edema Congestive Heart failuire, Systolic, Acute Diabetes, with Hyperglycemia Hypoglycemia BPH Hypertension Hypothyroidism pancytopenia peripheral Neuropathy Plan continue cardiac monitoring Continue bipap support on as needed basis, try to keep on nasal cannula Continue tamiflu and antibiotics for pneumonia, clincally improving, but still has high oxygen needs GEt Chest CT IV lasix daily, IV cholorthiazide today, bp stable, consider initiating beta julian tomorrow if the blood pressure remained stable, likely before discharge Pt is still febrile, due to pna switch to pt home insulin regime insulin 75/25 monitor glucose. continue gabapentin for neuropathy Continue flomax,/ levothyroxine. leung cytopenia likely from influienza, check path smear. DVT hep sq Diabetic diet Full code. Medical - PN: Qual - VTE Deep Vein Thrombosis/Pulmonary Embolism Present on Admission: No
--- NOTE | 2017-07-18 14:03 | Cat Scan Report ---
CLINICAL INFORMATION: Hypoxia. Respiratory failure. Influenza pneumonia COMPARISON: Previous chest x-rays dated 07/18/2017, 07/16/2017, 07/15/2017. TECHNIQUE: Axial noncontrast enhanced images through the chest. Sagittally and coronally reformatted images. MIP reformatted images. FINDINGS: There are bilateral pulmonary parenchymal infiltrates. These involve both upper lobes, both lower lobes, and right middle lobe. There are air bronchograms at the right lung base. There is mild peribronchial thickening. There are small nodules. No dominant nodule. No bronchiectasis or honeycombing. There is a moderate right pleural effusion. Infiltrates are nonspecific. Findings may be secondary to influenza pneumonia. Pulmonary edema is possible. Rose and mediastinum are negative to limits of noncontrast enhanced examination. There is very severe coronary artery calcification. No pericardial fluid. There are axillary lymph nodes bilaterally. These may be physiologic. No supraclavicular adenopathy. Upper abdomen is negative. No thoracic compression fractures or destructive lesions. IMPRESSION: 1. Nonspecific bilateral pulmonary parenchymal infiltrates and moderate right pleural effusion. There are air bronchograms at the right base 2. Infiltrates may be secondary to influenza pneumonia. Pulmonary edema is possible. The exam was performed using radiation dose optimization techniques including, but not limited to, automated exposure control, adjustment of the mA and/or kV according to patient size and use of iterative reconstruction technique. Interpreted and Authenticated by: Rajendra Roberts 07/18/17
[2017-07-18] MEDS: ACETAMINOPHEN 325 MG TABLET PO PRN ×2 (15:50→20:48)
[2017-07-18] MEDS ORDERED: INSULIN, 75/25 NPL/LISPRO 1 UNIT/0.01 ML UNIT SQ ONE (17:14)
[2017-07-18] MEDS: INSULIN, 75/25 NPL/LISPRO 1 UNIT/0.01 ML UNIT SQ SCH ×2 (17:19→17:31)
[2017-07-18] MEDS: TAMSULOSIN 0.4 MG CAPSULE PO SCH (20:48)
[2017-07-18] MEDS ORDERED: INSULIN NPH, HUMAN 1 UNIT/0.01 ML UNIT SQ ONE (21:33)
[2017-07-18] MEDS: SENNOSIDES/DOCUSATE SODIUM 1 TAB TABLET PO SCH (21:40)
[2017-07-19] MEDS: IPRATROPIUM/ALBUTEROL 3 ML AMPUL.NEB NEB SCH ×6 (03:26→22:54)
[2017-07-19 07:34] LABS: Basophils # (Auto) 0 K/mcL (0.0-0.3); Basophils % (Auto) 0.1 % (0.0-2.0); Eosinophils # (Auto) 0.3 K/mcL (0.0-0.7); Eosinophils % (Auto) 5.8 % (0.0-7.0); Granulocytes % (Auto) 63.3 % (38.0-78.0); Lymphocytes % (Auto) 19.2 % (15.5-49.0); Mean Cell Volume 96.9 fL (80.0-100.0); Mean Corpuscular HGB Conc 34.5 g/dL (31.0-36.0); Mean Corpuscular Hemoglobin 33.5 pg (26.0-34.0); Monocytes # (Auto) 0.6 K/mcL (0.1-0.9); Monocytes % (Auto) 11.6 % (1.0-12.0); Platelet Count 121 K/mcL (140-440); RBC 3.64 M/mcL (4.50-5.90)
[2017-07-19 07:58] LABS: ALT/SGPT 40 U/l (0-40); Albumin 3.1 gm/dL (3.2-5.2); Albumin/Globulin Ratio 1.3 (1.0-2.3); Alkaline Phosphatase 126 U/L (39-117); Bilirubin,Direct < 0.2 mg/dL (0.0-0.3); Blood Urea Nitrogen 30 mg/dl (8-23); Gamma Glutamyl Transpeptidase 143 U/L (8-61); Uric Acid 4.8 mg/dL (2.5-8.0)
[2017-07-19] MEDS: INSULIN LISPRO 1 UNIT/0.01 ML UNIT SQ SCH (08:01)
--- NOTE | 2017-07-19 08:23 | XRay Report ---
INDICATION: Pneumonia. Congestive heart failure. TECHNIQUE: AP chest x-ray,portable semiupright COMPARISON: Chest CT scan dated 07/18/2017. Chest x-ray dated 07/18/2017 FINDINGS:Persistent cardiomegaly, unchanged. Bilateral diffuse pulmonary parenchymal infiltrates. There is been mild interval improvement in the right upper lobe. No new abnormalities. Continued radiographic follow-up recommended. IMPRESSION: 1. Cardiomegaly, unchanged 2. Bilateral parenchymal infiltrates, slight interval improvement Interpreted and Authenticated by: Rajendra Roberts 07/19/17
[2017-07-19] MEDS ORDERED: CHLOROTHIAZIDE SODIUM 500 MG VIAL IV ONE (08:25)
[2017-07-19] MEDS ORDERED: POTASSIUM CHLORIDE 20 MEQ PACKET PO PRN (08:26)
[2017-07-19] MEDS: BUDESONIDE 0.5 MG/2 ML AMPUL.NEB NEB SCH ×2 (08:54→19:05)
[2017-07-19] MEDS: 0.9 % SODIUM CHLORIDE 10 ML SYRINGE IV SCH ×3 (09:14→22:10)
[2017-07-19] MEDS: VANCOMYCIN 1,500 MG in 0.9 % SODIUM CHLORIDE 500 ML IV SCH (09:34)
[2017-07-19] MEDS: FUROSEMIDE 40 MG/4 ML VIAL IV SCH (09:35)
[2017-07-19] MEDS: LEVOTHYROXINE 150 MCG TABLET PO SCH (09:35)
[2017-07-19] MEDS: HEPARIN 5,000 UNIT/ML VIAL SQ SCH ×2 (09:35→20:06)
[2017-07-19] MEDS: MULTIVIT,THER IRON,CA,FA & MIN 1 TABLET PO SCH (09:35)
[2017-07-19] MEDS: DOCUSATE SODIUM 100 MG CAPSULE PO SCH ×2 (09:35→20:08)
[2017-07-19] MEDS: GABAPENTIN 400 MG CAPSULE PO SCH ×3 (09:35→20:08)
[2017-07-19] MEDS: CEFEPIME 2 GM VIAL IV SCH (09:35)
[2017-07-19] MEDS: OSELTAMIVIR PHOSPHATE 75 MG CAPSULE PO SCH ×2 (09:35→20:08)
[2017-07-19] MEDS: INSULIN, 75/25 NPL/LISPRO 1 UNIT/0.01 ML UNIT SQ SCH ×3 (09:47→17:20)
--- NOTE | 2017-07-19 19:04 | Internal Med Progress Note ---
Medical - PN: Subj Patient information: Note initiated : 07/19/17 at 7:01 pm Service Date, if different from initiated Date: [] Patient: Javon Head 62 y/o M admitted on 07/13/17 for Hypoxic Resp Failure, Influenza Pneumonia. Chief Complaint: [] Interval history: patient admitted with acute influenza pneumonia/hypoxia respiratory failure. PaO2 to FiO2 ratio less than 200. Critically ill. On BiPAP.bilateral multifocal infiltrates. Started on bronchodilators/antibiotics. admitted to ICU. low threshold for mechanical ventilation if clinical deterioration noted.ABG 7.33/44/46 on 5 L oxygen. 07/14-patient on BiPAP. On 50% FiO2. Anxious requiring lorazepam. Large AA gradient.white count 7.4 with 12% bands.blood sugars improving down from 500 for 2-32 on basal prandial insulin. cultures negative so far. ontinue noninvasive ventilation. If clinical deterioration noted initiate mechanical ventilation. High-risk development of ARDS. Also high-risk superimposed pneumonia.continue antibiotic coverage/Tamiflu. [place] score 16 07/15- patient doing well. On 30% FiO2 BiPAP. No overnight events. Tolerating diet. Anxious but cooperative. No telemetry events. Tachycardia. Resolved. Good urine output. No significant respiratory distress except for time spent off BiPAP. No concerns per staff 07/16: Patient seen and examined, no acute overnight events, needed BiPAP last night however at baseline settings. Tolerating it well. Patient still has fever but denies any acute complaints. He still has shortness of breath he still has fatigue and weakness. Chest x-ray shows improving infiltrates mildly. Echocardiogram done shows left ventricle is moderately dilated, left ventricular systolic function is severely reduced around 20-25%. Pulmonary hypertension with pressures between 50-70 mmHg. The patient has dilated IVC on the echo. Patient was hypoglycemic this morning which corrected after he ate some food. Lantus discontinued as the patient reports he is very sensitive to same. Just sliding scale insulin for now. Patient transferred to telemetry status July 17 Patient seen and examined no acute overnight events, tolerated BiPAP well last night. Patient had a high-grade fever overnight needing Tylenol as well as 1 dose of Motrin. Patient's kidney function slightly worse today creatinine is 1.7. Patient's glucose values were high as Lantus was discontinued as it reported that patient had neuropathy to same. I reviewed with him the need for long-acting insulin and he is agreed to Lantus again we will stop if he develops numbness in his lower extremities. Patient continues on IV antibiotics. Echo findings reviewed with the patient explained to him that he has severe congestive heart failure patient denies any history of CHF in the past. Educated that he will need to be evaluated by a fast food worker as an outpatient july 18 Patient seen examined, no acute overnight events, was on bipap overnight, but pt notes he was not very short of breath he is on 8-10L oxygen via nasal canula Hiflo The patient denies any complaints his glucose is very high and he would prefer to be back on his home insulin resume humalog 75/25 Error in previous documentation, pt is not on steroids The patient Chest X ray still has moise infitrates, pt still has high grade fever, microbiology is negative so far Wbc is low normal, pt has low grade pancytopenia, all indicating viral infection , Pt has influenza positive Will get Chest CT today July 19 Seen and examined, no acute overnight events patient slept well did not need BiPAP last night. CT scan reviewed patient has pneumonia and likely CHF. Patient received chlorothiazide as well as Lasix yesterday and was negative 3165 , creatinine was stable we will repeat another dose today. Glucose values are now better today after initiating insulin 75/ 25 patient needed NPH last night Patient has no acute complaints is able to tolerate p.o. diet well and is ambulatory he is on oxygen 6 L this morning and is being weaned down Pertinent ROS: Denies headache, dizziness Denies chest pain, palpitations Denies cough or shortness of breath Denies abdominal pain, nausea or vomiting. - Constitutional Vitals: Vital Signs Temp Pulse Resp BP Pulse Ox 98.0 F 84 18 142/71 93 07/19/17 16:00 07/19/17 15:01 07/19/17 16:00 07/19/17 16:00 07/19/17 16:00 Period Temp Pulse Resp BP Sys/Locke Pulse Ox Last 24 Hr 98.0 F-101.9 F 80-89 16-20 123-150/64-78 90-97 Intake and Output 07/19/17 07/19/17 07/19/17 05:59 13:59 21:59 Intake Total 1340 / 1340 Output Total 2100 / 2100 3050 / 3050 Balance -2099 -2099 1340 / 1340 -3050 / -3050 Intake & Output: Intake & Output 07/19/17 07/19/17 07/19/17 05:59 13:59 21:59 Intake Total 1340 / 1340 Output Total 2099 3050 / 3050 Balance -2099 -2099 1340 / 1340 -3050 / -3050 Intake: IV 500 / 500 Vancomycin 1,500 mg In Sodium 500 / 500 Chloride 0.9% 500 ml @ 333.3 mls/hr IV Q24H [facility] Rx#: [id number] Oral 840 / 840 Output: Urine Catheter Amount 2099 305 / 3050 Other: Meal Lunch Percent of Meal Consumed 100% Feeding Ability Independent Stool Size Small Stool Color Brown Stool Consistency Soft Exam: Constitutional; Afebrile, cooperative, alert, not in distress. Eyes- No icterus, , No periorbital swelling Ears- Ext ear normal, hearing normal to conversation. Neck- Midline trachea, supple Respiratory system: Air Entry equal on both sides, bilateral expiratory wheeze much better, mild basilar crackles. CVS- Rate rhythm regular, S1,S2 heard, no gallop, no rub. Abdomen- Soft nontender abdomen, no organomegaly, no tenderness, no guarding or rigidity, TIERCE FILLER- AOOx3, moving all extremities, no gross focal deficit noted. Medical - PN: Obj Da - Labs CBC & Chem 7: 07/19/17 06:28 07/19/17 06:28 Labs: Abnormal Lab Results 07/19/17 07/19/17 07/18/17 06:28 06:28 03:42 WBC RBC 3.64 L Hgb 12.2 L Hct 35.3 L Plt Count 121 L MPV Lymph # (Auto) 1.0 L Platelet Estimate Chloride Carbon Dioxide 32 H 31 H BUN 30 H 37 H Creatinine 1.7 H 1.6 H Glucose 155 H 199 H Calcium 8.3 L 8.2 L GGT 143 H 132 H AST 62 H 38 H Alkaline Phosphatase 126 H Lactate Dehydrogenase 409 H 375 H Total Protein 5.4 L 5.1 L Albumin 3.1 L 2.9 L 07/18/17 07/17/17 07/17/17 03:42 03:41 03:41 WBC 4.4 L 4.2 L RBC 3.39 L 3.63 L Hgb 11.5 L 12.2 L Hct 33.2 L 35.7 L Plt Count 93 L 97 L MPV 10.5 H Lymph # (Auto) Platelet Estimate Decreased A Decreased A Chloride 95 L Carbon Dioxide BUN 35 H Creatinine 1.7 H Glucose 407 H Calcium 8.0 L GGT 116 H AST Alkaline Phosphatase Lactate Dehydrogenase 351 H Total Protein 5.2 L Albumin 2.8 L Meds: Medications Acetaminophen (Tylenol) 650 mg PO Q4-6HP PRN PRN Reason: PAIN/FEVER > 101 Last Admin: 07/18/17 20:48 Dose: 650 mg Albuterol/Ipratropium (Duoneb) 3 ml NEB Q4HRT [facility] Last Admin: 07/19/17 14:59 Dose: 3 ml Budesonide (Pulmicort) 0.5 mg NEB Q12 [facility] Last Admin: 07/19/17 08:54 Dose: 0.5 mg Cefepime HCl (Maxipime) 2 gm IV DAILY [facility] Last Admin: 07/19/17 09:35 Dose: 2 gm Dextrose (Dextrose 50%) 0 ml IV UD PRN PRN Reason: Hypoglycemia Diagnostic Test (Pha) (Accu-Chek) 1 each FS AC [facility] Last Admin: 07/19/17 17:12 Dose: 1 each Docusate Sodium (Colace) 100 mg PO BID [facility] Last Admin: 07/19/17 09:35 Dose: Not Given Furosemide (Lasix) 40 mg IV DAILY [facility] Last Admin: 07/19/17 09:35 Dose: 40 mg Gabapentin (Neurontin) 400 mg PO TID [facility] Last Admin: 07/19/17 17:19 Dose: 400 mg Glucose (Insta-Glucose) 15 gm PO PRN PRN PRN Reason: Hypoglycemia Guaifenesin/Codeine Phosphate (Robitussin Ac) 10 ml PO Q4HP PRN PRN Reason: Cough Heparin Sodium (Porcine) (Heparin) 5,000 unit SQ Q12 [facility] Last Admin: 07/19/17 09:35 Dose: 5,000 unit Potassium Chloride 40 meq/ (Dextrose) 520 mls @ 130 mls/hr IV UD PRN PRN Reason: K+ = or < 3.5 Magnesium Sulfate (Magnesium Sulfate) 2 gm in 50 mls @ 50 mls/hr IV UD PRN PRN Reason: MG = or < 1.7 Last Infusion: 07/18/17 04:18 Dose: Infused Acetaminophen (Ofirmev) 1,000 mg in 100 mls @ 200 mls/hr IV Q6HP PRN PRN Reason: PAIN/FEVER > 101 Last Infusion: 07/17/17 22:07 Dose: Infused Vancomycin HCl 1,500 mg/ (Sodium Chloride) 500 mls @ 333.3 mls/hr IV Q24H [facility] Last Infusion: 07/19/17 12:00 Dose: Infused Insulin Lispro Protam/Lispro Human (Humalog 75/25) 25 unit SQ TIDAC [facility] Last Admin: 07/19/17 17:20 Dose: 25 unit Iron Carb/Multivit/[place]/Folic Acid (Multivitamin W/Minerals) 1 tab PO DAILY [facility] Last Admin: 07/19/17 09:35 Dose: 1 tab Levothyroxine Sodium (Synthroid) 150 mcg PO ACB [facility] Last Admin: 07/19/17 09:35 Dose: 150 mcg Lorazepam (Ativan) 0.25 mg IV Q4HP PRN PRN Reason: ANXIETY/SEDATION Ondansetron HCl (Zofran) 4 mg IV Q4-6HP PRN PRN Reason: Nausea And Vomiting Oseltamivir Phosphate (Tamiflu) 75 mg PO BID [facility] Last Admin: 07/19/17 09:35 Dose: 75 mg Potassium Chloride (Klor-Con) 40 meq PO DAILYP PRN PRN Reason: K+ < 3.8 Senna/Docusate Sodium (Senna Plus Tablet) 1 tab PO HS [facility] Last Admin: 07/18/17 21:40 Dose: Not Given Sodium Chloride (Saline Flush) 10 ml IV Q8 [facility] Last Admin: 07/19/17 17:11 Dose: 10 ml Tamsulosin HCl (Flomax) 0.4 mg PO HS [facility] Last Admin: 07/18/17 20:48 Dose: 0.4 mg Trazodone HCl (Desyrel) 50 mg PO HSP PRN PRN Reason: Insomnia Vancomycin HCl (Vancomycin Per Pharmacy) 1 order IV UD [facility] Medical - PN: A/P - Time Spent With Patient Total time spent is greater than 50% in coordination of care (as documented) at patient's floor/unit and/or counseling patient: - Narrative A/P Narrative: A/P Acute hypoxic respiratory failure Influenza Pneumonia Acute pulmonary edema Congestive Heart failuire, Systolic, Acute Diabetes, with Hyperglycemia Hypoglycemia BPH Hypertension Hypothyroidism pancytopenia peripheral Neuropathy Plan continue cardiac monitoring Continue bipap support on as needed basis, try to keep on nasal cannula and BiPAP overnight Continue tamiflu and antibiotics for pneumonia, clincally improving, but still has high oxygen needs, 5-6 L today IV lasix daily, IV cholorthiazide today again, bp stable, Consider adding low-dose beta-julian tomorrow if the blood pressure remained stable, patient will likely need TRAVIS inhibitor also which can be added as an outpatient after the renal function is documented to be stable Patient's fever curve is now much better switch to pt home insulin regime insulin 75/25 monitor glucose. Glucose control is better continue gabapentin for neuropathy Continue flomax,/ levothyroxine. leung cytopenia likely from influienza, DVT hep sq Diabetic diet Full code. Medical - PN: Qual - VTE Deep Vein Thrombosis/Pulmonary Embolism Present on Admission: No
[2017-07-19] MEDS: ACETAMINOPHEN 325 MG TABLET PO PRN (19:23)
[2017-07-19] MEDS: TAMSULOSIN 0.4 MG CAPSULE PO SCH (20:06)
[2017-07-19] MEDS: SENNOSIDES/DOCUSATE SODIUM 1 TAB TABLET PO SCH (20:08)
[2017-07-19] MEDS ORDERED: INSULIN NPH, HUMAN 1 UNIT/0.01 ML UNIT SQ ONE (21:33)
[2017-07-19] MEDS: ACETAMINOPHEN 1,000 MG/100 ML BOTTLE IV PRN (23:38)
[2017-07-20] MEDS: IPRATROPIUM/ALBUTEROL 3 ML AMPUL.NEB NEB SCH ×3 (03:18→11:40)
[2017-07-20 05:06] LABS: Basophils # (Auto) 0 K/mcL (0.0-0.3); Basophils % (Auto) 0.1 % (0.0-2.0); Eosinophils # (Auto) 0.5 K/mcL (0.0-0.7); Eosinophils % (Auto) 9.1 % (0.0-7.0); Lymphocytes # (Auto) 1.1 K/mcL (1.5-4.8); Lymphocytes % (Auto) 19.5 % (15.5-49.0); Mean Corpuscular HGB Conc 33.5 g/dL (31.0-36.0); Mean Corpuscular Hemoglobin 32.9 pg (26.0-34.0); Monocytes # (Auto) 0.5 K/mcL (0.1-0.9); Monocytes % (Auto) 8.3 % (1.0-12.0); Platelet Count 167 K/mcL (140-440); RBC 3.64 M/mcL (4.50-5.90); Red Cell Distribution Width 13.2 % (11.5-14.5)
[2017-07-20] MEDS: 0.9 % SODIUM CHLORIDE 10 ML SYRINGE IV SCH ×3 (05:22→20:30)
[2017-07-20 05:47] LABS: ALT/SGPT 47 U/l (0-40); Albumin/Globulin Ratio 1.1 (1.0-2.3); Alkaline Phosphatase 125 U/L (39-117); Bilirubin,Direct < 0.2 mg/dL (0.0-0.3); Blood Urea Nitrogen 34 mg/dl (8-23); Gamma Glutamyl Transpeptidase 137 U/L (8-61); Uric Acid 5.6 mg/dL (2.5-8.0)
[2017-07-20] MEDS: LEVOTHYROXINE 150 MCG TABLET PO SCH (07:44)
[2017-07-20] MEDS: ACETAMINOPHEN 325 MG TABLET PO PRN (07:51)
[2017-07-20] MEDS: BUDESONIDE 0.5 MG/2 ML AMPUL.NEB NEB SCH (08:08)
[2017-07-20] MEDS: INSULIN, 75/25 NPL/LISPRO 1 UNIT/0.01 ML UNIT SQ SCH ×3 (09:44→19:36)
[2017-07-20] MEDS: GABAPENTIN 400 MG CAPSULE PO SCH ×3 (09:45→20:27)
[2017-07-20] MEDS: FUROSEMIDE 40 MG/4 ML VIAL IV SCH (09:45)
[2017-07-20] MEDS: OSELTAMIVIR PHOSPHATE 75 MG CAPSULE PO SCH ×2 (09:45→20:26)
[2017-07-20] MEDS: HEPARIN 5,000 UNIT/ML VIAL SQ SCH ×2 (09:45→20:27)
[2017-07-20] MEDS: DOCUSATE SODIUM 100 MG CAPSULE PO SCH ×2 (09:45→20:26)
[2017-07-20] MEDS: MULTIVIT,THER IRON,CA,FA & MIN 1 TABLET PO SCH (09:45)
[2017-07-20] MEDS: VANCOMYCIN 1,500 MG in 0.9 % SODIUM CHLORIDE 500 ML IV SCH (10:38)
[2017-07-20] MEDS ORDERED: IPRATROPIUM/ALBUTEROL 3 ML AMPUL.NEB NEB PRN ×2 (11:44→17:15)
[2017-07-20] MEDS ORDERED: acetaZOLAMIDE SOD 500 MG VIAL IV ONE (12:50)
--- NOTE | 2017-07-20 12:51 | Internal Med Progress Note ---
Medical - PN: Subj Patient information: Note initiated : 07/20/17 at 12:48 pm Service Date, if different from initiated Date: [] Patient: Javon Head 62 y/o M admitted on 07/13/17 for Hypoxic Resp Failure, Influenza Pneumonia. Chief Complaint: [] Interval history: patient admitted with acute influenza pneumonia/hypoxia respiratory failure. PaO2 to FiO2 ratio less than 200. Critically ill. On BiPAP.bilateral multifocal infiltrates. Started on bronchodilators/antibiotics. admitted to ICU. low threshold for mechanical ventilation if clinical deterioration noted.ABG 7.33/44/46 on 5 L oxygen. 07/14-patient on BiPAP. On 50% FiO2. Anxious requiring lorazepam. Large AA gradient.white count 7.4 with 12% bands.blood sugars improving down from 500 for 2-32 on basal prandial insulin. cultures negative so far. ontinue noninvasive ventilation. If clinical deterioration noted initiate mechanical ventilation. High-risk development of ARDS. Also high-risk superimposed pneumonia.continue antibiotic coverage/Tamiflu. [place] score 16 07/15- patient doing well. On 30% FiO2 BiPAP. No overnight events. Tolerating diet. Anxious but cooperative. No telemetry events. Tachycardia. Resolved. Good urine output. No significant respiratory distress except for time spent off BiPAP. No concerns per staff 07/16: Patient seen and examined, no acute overnight events, needed BiPAP last night however at baseline settings. Tolerating it well. Patient still has fever but denies any acute complaints. He still has shortness of breath he still has fatigue and weakness. Chest x-ray shows improving infiltrates mildly. Echocardiogram done shows left ventricle is moderately dilated, left ventricular systolic function is severely reduced around 20-25%. Pulmonary hypertension with pressures between 50-70 mmHg. The patient has dilated IVC on the echo. Patient was hypoglycemic this morning which corrected after he ate some food. Lantus discontinued as the patient reports he is very sensitive to same. Just sliding scale insulin for now. Patient transferred to telemetry status July 17 Patient seen and examined no acute overnight events, tolerated BiPAP well last night. Patient had a high-grade fever overnight needing Tylenol as well as 1 dose of Motrin. Patient's kidney function slightly worse today creatinine is 1.7. Patient's glucose values were high as Lantus was discontinued as it reported that patient had neuropathy to same. I reviewed with him the need for long-acting insulin and he is agreed to Lantus again we will stop if he develops numbness in his lower extremities. Patient continues on IV antibiotics. Echo findings reviewed with the patient explained to him that he has severe congestive heart failure patient denies any history of CHF in the past. Educated that he will need to be evaluated by a bus van driver as an outpatient july 18 Patient seen examined, no acute overnight events, was on bipap overnight, but pt notes he was not very short of breath he is on 8-10L oxygen via nasal canula Hiflo The patient denies any complaints his glucose is very high and he would prefer to be back on his home insulin resume humalog 75/25 Error in previous documentation, pt is not on steroids The patient Chest X ray still has moise infitrates, pt still has high grade fever, microbiology is negative so far Wbc is low normal, pt has low grade pancytopenia, all indicating viral infection , Pt has influenza positive Will get Chest CT today July 19 Seen and examined, no acute overnight events patient slept well did not need BiPAP last night. CT scan reviewed patient has pneumonia and likely CHF. Patient received chlorothiazide as well as Lasix yesterday and was negative 3165 , creatinine was stable we will repeat another dose today. Glucose values are now better today after initiating insulin 75/ 25 patient needed NPH last night Patient has no acute complaints is able to tolerate p.o. diet well and is ambulatory he is on oxygen 6 L this morning and is being weaned down July 20-patient doing well. On 5 L oxygen. Weaning as tolerated. Physical therapy. Tolerating diet. Feels a lot better since previous day.steady diuresis. 2000 cc net negative since previous day.reatinine 1.7. Contraction alkalosis. Start Diamox - Constitutional Vitals: Vital Signs Temp Pulse Resp BP Pulse Ox 97.4 F 90 16 111/61 96 07/20/17 12:00 07/20/17 11:41 07/20/17 12:00 07/20/17 12:00 07/20/17 12:00 Period Temp Pulse Resp BP Sys/Locke Pulse Ox Last 24 Hr 97.4 F-101.8 F 76-99 16-28 111-142/61-71 93-99 Intake and Output 07/19/17 07/20/17 07/20/17 21:59 05:59 13:59 Intake Total 360 / 360 460 / 460 Output Total 3050 / 3050 1050 / 1050 Balance -2690 / -2690 -590 / -590 Weight 175 lb 8 oz Intake & Output: Intake & Output 07/19/17 07/20/17 07/20/17 21:59 05:59 13:59 Intake Total 360 / 360 460 / 460 Output Total 3050 / 3050 1050 / 1050 Balance -2690 / -2690 -590 / -590 Weight 175 lb 8 oz Intake: IV 100 / 100 Oral 360 / 360 360 / 360 Output: Urine Catheter Amount 3050 / 3050 1050 / 1050 Other: Meal Dinner Percent of Meal Consumed 75% Feeding Ability Independent # of times incontinent of 1 Bowels General appearance: cooperative, no acute distress Exam: on 5 L oxygen Respiratory distress No lymphedema Alert oriented Medical - PN: Obj Da - Labs CBC & Chem 7: 07/20/17 03:37 07/20/17 03:37 Labs: Abnormal Lab Results 07/20/17 07/20/17 07/19/17 03:37 03:37 06:28 WBC RBC 3.64 L Hgb 12.0 L Hct 35.7 L Plt Count Eos % (Auto) 9.1 H Lymph # (Auto) 1.1 L Platelet Estimate Carbon Dioxide 33 H 32 H BUN 34 H 30 H Creatinine 1.7 H 1.7 H Glucose 114 H 155 H Calcium 8.5 L 8.3 L GGT 137 H 143 H AST 70 H 62 H ALT 47 H Alkaline Phosphatase 125 H 126 H Lactate Dehydrogenase 419 H 409 H Total Protein 5.7 L 5.4 L Albumin 3.0 L 3.1 L 07/19/17 07/18/17 07/18/17 06:28 03:42 03:42 WBC 4.4 L RBC 3.64 L 3.39 L Hgb 12.2 L 11.5 L Hct 35.3 L 33.2 L Plt Count 121 L 93 L Eos % (Auto) Lymph # (Auto) 1.0 L Platelet Estimate Decreased A Carbon Dioxide 31 H BUN 37 H Creatinine 1.6 H Glucose 199 H Calcium 8.2 L GGT 132 H AST 38 H ALT Alkaline Phosphatase Lactate Dehydrogenase 375 H Total Protein 5.1 L Albumin 2.9 L Meds: Medications Acetaminophen (Tylenol) 650 mg PO Q4-6HP PRN PRN Reason: PAIN/FEVER > 101 Last Admin: 07/20/17 07:51 Dose: 650 mg Albuterol/Ipratropium (Duoneb) 3 ml NEB Q6HP PRN PRN Reason: Shortness Of Breath Or Wheezing Dextrose (Dextrose 50%) 0 ml IV UD PRN PRN Reason: Hypoglycemia Diagnostic Test (Pha) (Accu-Chek) 1 each FS AC [facility] Last Admin: 07/20/17 12:24 Dose: 1 each Docusate Sodium (Colace) 100 mg PO BID [facility] Last Admin: 07/20/17 09:45 Dose: Not Given Furosemide (Lasix) 40 mg IV DAILY [facility] Last Admin: 07/20/17 09:45 Dose: 40 mg Gabapentin (Neurontin) 400 mg PO TID [facility] Last Admin: 07/20/17 09:45 Dose: 400 mg Glucose (Insta-Glucose) 15 gm PO PRN PRN PRN Reason: Hypoglycemia Guaifenesin/Codeine Phosphate (Robitussin Ac) 10 ml PO Q4HP PRN PRN Reason: Cough Heparin Sodium (Porcine) (Heparin) 5,000 unit SQ Q12 [facility] Last Admin: 07/20/17 09:45 Dose: 5,000 unit Potassium Chloride 40 meq/ (Dextrose) 520 mls @ 130 mls/hr IV UD PRN PRN Reason: K+ = or < 3.5 Magnesium Sulfate (Magnesium Sulfate) 2 gm in 50 mls @ 50 mls/hr IV UD PRN PRN Reason: MG = or < 1.7 Last Infusion: 07/18/17 04:18 Dose: Infused Acetaminophen (Ofirmev) 1,000 mg in 100 mls @ 200 mls/hr IV Q6HP PRN PRN Reason: PAIN/FEVER > 101 Last Infusion: 07/20/17 00:15 Dose: Infused Vancomycin HCl 1,500 mg/ (Sodium Chloride) 500 mls @ 333.3 mls/hr IV Q24H [facility] Last Admin: 07/20/17 10:38 Dose: 333 mls/hr Insulin Lispro Protam/Lispro Human (Humalog 75/25) 25 unit SQ TIDAC [facility] Last Admin: 07/20/17 12:25 Dose: 25 unit Iron Carb/Multivit/[place]/Folic Acid (Multivitamin W/Minerals) 1 tab PO DAILY [facility] Last Admin: 07/20/17 09:45 Dose: 1 tab Levothyroxine Sodium (Synthroid) 150 mcg PO ACB [facility] Last Admin: 07/20/17 07:44 Dose: 150 mcg Lorazepam (Ativan) 0.25 mg IV Q4HP PRN PRN Reason: ANXIETY/SEDATION Ondansetron HCl (Zofran) 4 mg IV Q4-6HP PRN PRN Reason: Nausea And Vomiting Oseltamivir Phosphate (Tamiflu) 75 mg PO BID [facility] Last Admin: 07/20/17 09:45 Dose: 75 mg Potassium Chloride (Klor-Con) 40 meq PO DAILYP PRN PRN Reason: K+ < 3.8 Senna/Docusate Sodium (Senna Plus Tablet) 1 tab PO HS [facility] Last Admin: 07/19/17 20:08 Dose: 1 tab Sodium Chloride (Saline Flush) 10 ml IV Q8 [facility] Last Admin: 07/20/17 05:22 Dose: 10 ml Tamsulosin HCl (Flomax) 0.4 mg PO HS [facility] Last Admin: 07/19/17 20:06 Dose: 0.4 mg Trazodone HCl (Desyrel) 50 mg PO HSP PRN PRN Reason: Insomnia Vancomycin HCl (Vancomycin Per Pharmacy) 1 order IV UD [facility] Medical - PN: A/P - Time Spent With Patient Total time spent is greater than 50% in coordination of care (as documented) at patient's floor/unit and/or counseling patient: 15 - 24 minutes (1) Acute respiratory failure with hypoxia Status: Acute Current Visit: Yes - Narrative A/P Narrative: A/P Acute hypoxic respiratory failure-on 5 L oxygen Influenza Pneumonia-clinically improving Acute pulmonary edema-resolved. Ongoing diuresis Congestive Heart failuire, Systolic, Acute Diabetes, with Hyperglycemia Hypoglycemia BPH Hypertension Hypothyroidism pancytopenia peripheral Neuropathy Plan continue weaning oxygen Diamox for contraction alkalosis pre-existing medical condition management as above DVT hep sq Diabetic diet Full code. Medical - PN: Qual - VTE Deep Vein Thrombosis/Pulmonary Embolism Present on Admission: No
[2017-07-20] MEDS ORDERED: METOPROLOL SUCCINATE 25 MG TAB.XL.24H PO ONE (13:01)
[2017-07-20] MEDS: CEFEPIME 2 GM VIAL IV SCH (16:57)
[2017-07-20] MEDS ORDERED: ONDANSETRON 4 MG/2 ML VIAL IV PRN (17:15)
[2017-07-20] MEDS ORDERED: POTASSIUM CHLORIDE 40 MEQ in DEXTROSE 5% IN WATER 500 ML IV PRN (17:15)
[2017-07-20] MEDS ORDERED: DEXTROSE 31 GM ORAL.SUSP PO PRN (17:15)
[2017-07-20] MEDS ORDERED: LORazepam 2 MG/ML VIAL IV PRN (17:15)
[2017-07-20] MEDS ORDERED: MAGNESIUM SULFATE 2 GM/50 ML BAG IV PRN (17:15)
[2017-07-20] MEDS ORDERED: DEXTROSE 50% 50 ML VIAL IV PRN (17:15)
[2017-07-20] MEDS ORDERED: POTASSIUM CHLORIDE 20 MEQ PACKET PO PRN (17:15)
[2017-07-20] MEDS ORDERED: guaiFENesin/CODEINE 10 ML UDC PO PRN (17:15)
[2017-07-20] MEDS ORDERED: VANCOMYCIN PER PHARMACY IV SCH (17:15)
[2017-07-20] MEDS ORDERED: ACETAMINOPHEN 1,000 MG/100 ML BOTTLE IV PRN (17:15)
[2017-07-20] MEDS ORDERED: ACETAMINOPHEN 325 MG TABLET PO PRN (17:15)
[2017-07-20] MEDS ORDERED: traZODone HCL 50 MG TABLET PO PRN (17:15)
[2017-07-20] MEDS ORDERED: TAMSULOSIN 0.4 MG CAPSULE PO SCH (21:00)
[2017-07-20] MEDS ORDERED: SENNOSIDES/DOCUSATE SODIUM 1 TAB TABLET PO SCH (21:00)
[2017-07-20] MEDS ORDERED: LISINOPRIL 5 MG TABLET PO SCH ×2 (21:00)
[2017-07-21 05:50] LABS: Basophils # (Auto) 0 K/mcL (0.0-0.3); Basophils % (Auto) 0.1 % (0.0-2.0); Eosinophils # (Auto) 0.9 K/mcL (0.0-0.7); Eosinophils % (Auto) 12.4 % (0.0-7.0); Lymphocytes # (Auto) 0.9 K/mcL (1.5-4.8); Mean Corpuscular HGB Conc 33.9 g/dL (31.0-36.0); Mean Corpuscular Hemoglobin 33.2 pg (26.0-34.0); Monocytes # (Auto) 0.6 K/mcL (0.1-0.9); Monocytes % (Auto) 8.5 % (1.0-12.0); Platelet Count 238 K/mcL (140-440); RBC 3.56 M/mcL (4.50-5.90); Red Cell Distribution Width 13.4 % (11.5-14.5)
[2017-07-21 06:21] LABS: ALT/SGPT 47 U/l (0-40); Albumin/Globulin Ratio 1.1 (1.0-2.3); Alkaline Phosphatase 136 U/L (39-117); Bilirubin,Direct < 0.2 mg/dL (0.0-0.3); Blood Urea Nitrogen 38 mg/dl (8-23); Gamma Glutamyl Transpeptidase 140 U/L (8-61); Uric Acid 5.3 mg/dL (2.5-8.0)
[2017-07-21] MEDS: 0.9 % SODIUM CHLORIDE 10 ML SYRINGE IV SCH ×2 (06:34→16:15)
[2017-07-21] MEDS ORDERED: LEVOTHYROXINE 150 MCG TABLET PO SCH (07:30)
[2017-07-21] MEDS: GABAPENTIN 400 MG CAPSULE PO SCH ×2 (08:24→16:14)
[2017-07-21] MEDS: OSELTAMIVIR PHOSPHATE 75 MG CAPSULE PO SCH (08:25)
[2017-07-21] MEDS: INSULIN, 75/25 NPL/LISPRO 1 UNIT/0.01 ML UNIT SQ SCH ×3 (08:26→16:25)
[2017-07-21] MEDS: HEPARIN 5,000 UNIT/ML VIAL SQ SCH (08:28)
[2017-07-21] MEDS ORDERED: FUROSEMIDE 40 MG/4 ML VIAL IV SCH (09:00)
[2017-07-21] MEDS ORDERED: METOPROLOL SUCCINATE 25 MG TAB.XL.24H PO SCH ×2 (09:00)
[2017-07-21] MEDS ORDERED: MULTIVIT,THER IRON,CA,FA & MIN 1 TABLET PO SCH (09:00)
[2017-07-21] MEDS ORDERED: FUROSEMIDE 40 MG TABLET PO SCH (09:00)
[2017-07-21] MEDS: DOCUSATE SODIUM 100 MG CAPSULE PO SCH (09:18)
[2017-07-21] MEDS ORDERED: VANCOMYCIN 1,500 MG in 0.9 % SODIUM CHLORIDE 500 ML IV SCH (10:00)
--- NOTE | 2017-07-21 10:40 | Discharge Summary ---
Medical - DS: Prov Patient information: Note initiated : 07/21/17 at 10:36 am Service Date, if different from initiated Date: [] Patient: Javon Head 62 y/o M admitted on 07/13/17 for Hypoxic Resp Failure, Influenza Pneumonia. Chief Complaint: [] Date of admission: 07/13/17 14:55 Discharge date: 07/21/17 Primary care physician: Luisito Dunn Consults: 07/13/17 12:49 Consult to Physician [CONS] Stat Comment: Consulting Provider: Kyle Corrales Reason For Exam: Physician to Consult Medical - DS: Meds - Discharge Medications Prescriptions: Furosemide [Lasix] 20 mg PO Q48 #30 tab Lisinopril [Zestril] 2.5 mg PO HS #30 tab Metoprolol Succinate [Toprol Xl] 12.5 mg PO DAILY #30 tab.xl.24h Oseltamivir Phosphate [Tamiflu] 75 mg PO BID #2 cap Active and Home Medications: Home Medications Gabapentin [Neurontin] 400 mg PO TID 07/13/17 [History Confirmed 07/13/17 Last Taken Unknown] Insulin, 75/25 NPL/Lispro [Humalog 75/25] 15 unit SQ BIDAC 07/13/17 [History Confirmed 07/13/17 Last Taken Unknown] Levothyroxine [Synthroid] 150 mcg PO DAILY 07/13/17 [History Confirmed 07/13/17 Last Taken Unknown] Tamsulosin [Flomax] 0.4 mg PO HS 07/13/17 [History Confirmed 07/13/17 Last Taken Unknown] Furosemide [Lasix] 20 mg PO Q48 #30 tab 07/21/17 [Rx Last Taken Unknown] Lisinopril [Zestril] 2.5 mg PO HS #30 tab 07/21/17 [Rx Last Taken Unknown] Metoprolol Succinate [Toprol Xl] 12.5 mg PO DAILY #30 tab.xl.24h 07/21/17 [Rx Last Taken Unknown] Oseltamivir Phosphate [Tamiflu] 75 mg PO BID #2 cap 07/21/17 [Rx Last Taken Unknown] Medical - DS: Hosp Hospital course: discharge diagnosis Acute hypoxic respiratory failure-on room air. Influenza Pneumonia-clinically improving Acute pulmonary edema-resolved. Ongoing diuresis NYHA class III systolic heart failure- continue beta julian/TRAVIS inhibitor/ outpatient cardiology follow-up Diabetes, with Hyperglycemia- on NPH 75/25with erratic control. Case discussed with PCP for better optimization of outpatient blood sugars. BPH-tamsulosin Hypertension Hypothyroidism pancytopenia- secondary infection. Resolved. Platelets up from 93-238 peripheral Neuropathy brief hospital course patient admitted with acute influenza pneumonia/hypoxia respiratory failure. PaO2 to FiO2 ratio less than 200. Critically ill. On BiPAP.bilateral multifocal infiltrates. Started on bronchodilators/antibiotics. admitted to ICU. low threshold for mechanical ventilation if clinical deterioration noted.ABG 7.33/44/46 on 5 L oxygen. 07/14-patient on BiPAP. On 50% FiO2. Anxious requiring lorazepam. Large AA gradient.white count 7.4 with 12% bands.blood sugars improving down from 500 for 2-32 on basal prandial insulin. cultures negative so far. ontinue noninvasive ventilation. If clinical deterioration noted initiate mechanical ventilation. High-risk development of ARDS. Also high-risk superimposed pneumonia.continue antibiotic coverage/Tamiflu. Mccreary score 16 07/15- patient doing well. On 30% FiO2 BiPAP. No overnight events. Tolerating diet. Anxious but cooperative. No telemetry events. Tachycardia. Resolved. Good urine output. No significant respiratory distress except for time spent off BiPAP. No concerns per staff 07/16: Patient seen and examined, no acute overnight events, needed BiPAP last night however at baseline settings. Tolerating it well. Patient still has fever but denies any acute complaints. He still has shortness of breath he still has fatigue and weakness. Chest x-ray shows improving infiltrates mildly. Echocardiogram done shows left ventricle is moderately dilated, left ventricular systolic function is severely reduced around 20-25%. Pulmonary hypertension with pressures between 50-70 mmHg. The patient has dilated IVC on the echo. Patient was hypoglycemic this morning which corrected after he ate some food. Lantus discontinued as the patient reports he is very sensitive to same. Just sliding scale insulin for now. Patient transferred to telemetry status July 17 Patient seen and examined no acute overnight events, tolerated BiPAP well last night. Patient had a high-grade fever overnight needing Tylenol as well as 1 dose of Motrin. Patient's kidney function slightly worse today creatinine is 1.7. Patient's glucose values were high as Lantus was discontinued as it reported that patient had neuropathy to same. I reviewed with him the need for long-acting insulin and he is agreed to Lantus again we will stop if he develops numbness in his lower extremities. Patient continues on IV antibiotics. Echo findings reviewed with the patient explained to him that he has severe congestive heart failure patient denies any history of CHF in the past. Educated that he will need to be evaluated by a lead generation representative as an outpatient july 18 Patient seen examined, no acute overnight events, was on bipap overnight, but pt notes he was not very short of breath he is on 8-10L oxygen via nasal canula Hiflo The patient denies any complaints his glucose is very high and he would prefer to be back on his home insulin resume humalog 75/25 Error in previous documentation, pt is not on steroids The patient Chest X ray still has moise infitrates, pt still has high grade fever, microbiology is negative so far Wbc is low normal, pt has low grade pancytopenia, all indicating viral infection , Pt has influenza positive Will get Chest CT today July 19 Seen and examined, no acute overnight events patient slept well did not need BiPAP last night. CT scan reviewed patient has pneumonia and likely CHF. Patient received chlorothiazide as well as Lasix yesterday and was negative 3165 , creatinine was stable we will repeat another dose today. Glucose values are now better today after initiating insulin 75/ 25 patient needed NPH last night Patient has no acute complaints is able to tolerate p.o. diet well and is ambulatory he is on oxygen 6 L this morning and is being weaned down July 20-patient doing well. On 5 L oxygen. Weaning as tolerated. Physical therapy. Tolerating diet. Feels a lot better since previous day.steady diuresis. 2000 cc net negative since previous day.reatinine 1.7. Contraction alkalosis. Start Diamox july 21-patient doing well. However had a horrible night and was unable to sleep. He is on room air at rest but requiring oxygen during exertion. Case discussed with Dr. Dunn primary care physician patient will follow up as an outpatient with continued TRAVIS inhibitor/beta julian for diagnosis of NYHA class III systolic heart failure with EF 20% Patient will need further evaluation by cardiology just to be coordinated by primary care physician. Patient will also need optimization of his insulin dosing to erratic blood sugars. Discharge in stable state with instruction and advise as below Discharge diagnosis: . - Time Spent with Patient Total time spent providing and/or coordinating discharge services: Greater than 30 minutes Medical - DS: Exam - Constitutional Vitals: Vital Signs Temp Pulse Pulse Resp BP BP Pulse Ox 07/21/17 06:56 97.6 F 92 H 16 126/66 07/21/17 04:00 98.8 F 93 H 16 135/71 91 07/21/17 00:00 98.9 F 87 16 118/58 90 07/20/17 20:00 97.4 F 83 16 134/70 92 07/20/17 19:53 92 07/20/17 16:00 98.9 F 16 164/57 94 07/20/17 12:00 97.4 F 16 111/61 96 07/20/17 11:41 90 16 Intake and Output 07/20/17 07/21/17 07/21/17 21:59 05:59 13:59 Intake Total 1480 / 1480 320 / 320 Output Total 920 / 920 325 / 325 Balance 560 / 560 -5 / -5 Intake: Oral 1480 / 1480 320 / 320 Output: Urine Catheter Amount 920 / 920 Void Amount 325 / 325 Other: Meal Dinner Percent of Meal Consumed 100% # Voids 1 Weight 171 lb Medical - DS: Data Labs on day of discharge: Labs from last 24 hours 07/21/17 07/21/17 04:20 04:20 WBC 7.6 RBC 3.56 L Hgb 11.8 L Hct 34.9 L MCV 98.0 MCH 33.2 MCHC 33.9 RDW 13.4 Plt Count 238 MPV 9.4 Gran % 67.0 Lymph % (Auto) 12.0 L Dixie % (Auto) 8.5 Eos % (Auto) 12.4 H Baso % (Auto) 0.1 Gran # 5.1 Lymph # (Auto) 0.9 L Dixie # (Auto) 0.6 Eos # (Auto) 0.9 H Baso # (Auto) 0 Sodium 137 Potassium 4.4 Chloride 95 L Carbon Dioxide 28 Anion Gap 14.0 BUN 38 H Creatinine 1.6 H GFR Calculation 46 Glucose 226 H Uric Acid 5.3 Calcium 8.4 L Phosphorus 2.4 L Magnesium 2.0 Total Bilirubin 0.4 Direct Bilirubin < 0.2 GGT 140 H AST 61 H ALT 47 H Alkaline Phosphatase 136 H Lactate Dehydrogenase 393 H Total Protein 5.8 L Albumin 3.0 L Globulin 2.8 Albumin/Globulin Ratio 1.1 Triglycerides 166 H Preliminary micro results at discharge 07/16/17 12:44 Blood Culture - Preliminary Blood 07/16/17 12:32 Blood Culture - Preliminary Blood Medical - DS: A/P - Patient/Caregiver Discharge Instructions Activity: increase activity as tolerated, resume usual activities as tolerated Diet: Cardiac Additional Instructions: Follow-up PCP in 5 days follow-up cardiology to be scheduled by primary care physician in 2-4 weeks. Patient may be a candidate for defibrillator in light of depressed EF and high risk cardiac I recommend primary care physician to check CBC BMP UA as a posthospital follow- up and Chest x-ray in 1 week. Tamiflu for additional 24 hours oxygen as recommended by RT based on exercise oximetry testing daily weights measurements and take additional 40 mg Lasix for 3 days if weight gain over 4 pounds over baseline or worsening shortness of breath and call primary care physician if inadequate response to Lasix All meals on chair sitting upright at 90 degrees to prevent aspiration Return to ER if worsening fever chills shortness of breath, diarrhea, bleeding review the side effect profile of TRAVIS inhibitor/beta julian side effect may include hypertension /dizziness/lightheadedness since bradycardia. Side effects can be minimized by close follow up with primary care physician and monitoring for symptoms Refrain from smoking and alcohol Continue diet and activity as advised Discussed importance of medication adherence Please review medication list with patient prior to discharge Please schedule follow-up with PCP/Providers prior to discharge and provide printouts Portions of this chart may have been created with [employer] voice recognition software. Occasional wrong-word or ?sound-like? substitutions may have occurred due to the inherent limitations of voice recognition software. Please read the chart carefully and recognize, using context, where the substitutions have occurred. CC- PCP on Prescriptions: Furosemide [Lasix] 20 mg PO Q48 #30 tab Lisinopril [Zestril] 2.5 mg PO HS #30 tab Metoprolol Succinate [Toprol Xl] 12.5 mg PO DAILY #30 tab.xl.24h Oseltamivir Phosphate [Tamiflu] 75 mg PO BID #2 cap - Problem Maintenance (1) Acute respiratory failure with hypoxia Status: Acute - Follow up Plan Disposition: Home, Self-Care Prognosis: Critical Rehab Potential: Fair I certify that the patient requires SNF services: No Overall status at discharge: patient is progressing back to baseline Medical - DS: Qual - VTE Deep Vein Thrombosis/Pulmonary Embolism Present on Admission: No
[2017-07-21] MEDS ORDERED: PNEUMOCOCCAL 23-VAL P-SAC VAC 0.5 ML VIAL IM ONE (17:00)
[2017-07-21] MEDS ORDERED: FLU VACC QS2017-18 36MOS UP/PF 60 MCG/0.5 ML SYRINGE IM ONE (17:15)
== END 2017-07-21 18:15 | disposition home or self-care (01) | DRG 193 ==
LOC: ED 10:45 → ICU 14:55 → MEDSUR 07-20 17:47
PROVIDERS: ADMIT Internal Medicine; ATTEND Internal Medicine

== ENCOUNTER 2019-12-20 18:59 | Inpatient (IN) ==
[2019-12-20] MEDS ORDERED: LACTATED RINGERS 1,000 ML IV ONE (19:05)
--- NOTE | 2019-12-20 19:08 | Emergency Department Note ---
HPI General Chief complaint: Blood Sugar Problem Stated complaint: found unresponsive Time Seen by Provider: 12/20/19 19:05 Mode of arrival: wheelchair History of Present Illness HPI Narrative: Narrative: This patient was found unresponsive and when EMS arrived his blood sugar was 38 and he was given an amp of D50 and woke. He is now awake and alert. He apparen tly bumped his nose and had slight bleeding but no active bleeding at this time. He denies headache neck pain back pain chest pain abdominal pain. He is not on any blood thinners. Patient's showed up and was able to relate the history that she found him unconscious next to his car in the garage. She called EMS and they were the ones that gave him D50 and woke him up. Patient relates that he had triple bypass surgery earlier this year. Related Data Home Medications Medication Instructions Recorded Confirmed Humalog Mix 75-25(U-100)Insuln 15 unit SQ TID 07/13/17 07/13/17 gabapentin 400 mg PO BID 07/13/17 07/13/17 levothyroxine 150 mcg PO DAILY 07/13/17 07/13/17 tamsulosin 0.4 mg PO HS 07/13/17 07/13/17 atorvastatin 40 mg PO QDAY 12/20/19 12/20/19 cyclobenzaprine 10 mg PO TID 12/20/19 12/20/19 doxycycline hyclate 100 mg PO QDAY 12/20/19 12/20/19 furosemide 20 mg PO DAILY 12/20/19 Previous Rx's Medication Instructions Recorded lisinopril 2.5 mg PO HS #30 tab 07/21/17 metoprolol succinate 12.5 mg PO DAILY #30 tab.xl.24h 07/21/17 oseltamivir 75 mg PO BID #2 cap 07/21/17 Allergies Allergy/AdvReac Type Severity Reaction Status Date / Time No Known Drug Allergies Allergy Verified 12/20/19 19:13 Review of Systems ROS ROS Narrative: Narrative: All systems ED: reviewed and negative except as stated. PFSH Narrative Patient History Narrative: Narrative: Medical/Surgical/Family History All Active Problems (Updated 12/20/19 @ 23:11 by Maxim Mccurdy MD) Hypoxia (Acute) CHF (congestive heart failure) (Acute) Diabetes mellitus type 2, uncontrolled, with complications (Acute) Acidosis, metabolic (Acute) Elevated LFTs (Acute) Elevated serum creatinine (Acute) Anemia (Acute) Acute respiratory failure with hypoxia (Acute) Pneumonia (Acute) Social History Smoking Status: Current every day smoker Exam Narrative Narrative: Narrative: Head Head: other (Little dried blood on the face apparently came from the nose but no active bleeding at this time.) Eye Eye: Present normal appearance and conjunctival injection Neck Neck: Present normal inspection and full ROM; Absent tenderness Chest Chest: Present normal inspection and symmetric chest wall rise Respiratory Respiratory: Present normal lung sounds bilaterally; Absent respiratory distress, rales/crackles and wheezes Cardiovascular Cardiovascular: Present regular rate, normal rhythm and normal heart sounds Adbominal Abdominal: Present soft; Absent distention and tenderness Neurological Neurological: Present alert Psychiatric Psychiatric: Present normal affect Skin Skin: Present warm and dry; Absent diaphoresis Course Vital Signs Vital signs: Vital Signs Temperature 97.6 F 12/20/19 19:00 Pulse Rate 95 H 12/20/19 19:00 Respiratory Rate 19 12/20/19 19:00 Blood Pressure 134/68 12/20/19 19:00 Pulse Oximetry (%) 95 12/20/19 19:00 Temperature 97.6 F 12/20/19 19:00 Pulse Rate 108 H 12/20/19 22:47 Respiratory Rate 23 H 12/20/19 22:47 Blood Pressure 165/92 12/20/19 22:47 Pulse Oximetry (%) 89 L 12/20/19 22:47 [facility] MDM Narrative Medical decision making narrative: Narrative: Patient seemed fairly stable for quite a while as we are waiting for his blood work to return. However he gradually seem to be a little short of breath and hypoxic requiring oxygen. Chest x-ray showed a lot of left upper lung consolidation and a BNP came back at 10,000. He was covered for pneumonia with Levaquin and Rocephin and given 40 mg of Lasix and diuresed 2100 cc fairly quickly. I discussed the case with Dr. Schmid and he will be admitted to the [facility]. Lab Data Result diagrams: 12/20/19 19:13 12/20/19 19:13 Labs: Lab Results 12/20/19 12/20/19 12/20/19 Range/Units 19:13 19:13 19:15 WBC 7.5 (4.50-11.00) K/mcL RBC 2.80 L (4.63-6.08) M/mcL Hgb 9.4 L (13.7-17.5) g/dL Hct 28.6 L (40.1-51.0) % MCV 102.1 H (80.0-100.0) fL MCH 33.6 (26.0-34.0) pg MCHC 32.9 (31.0-36.0) g/dL RDW 15.8 H (11.5-14.5) % Plt Count 146 (140-440) K/mcL MPV 12.8 H (7.4-10.4) fL Gran % 92.5 H (38.0-78.0) % Lymph % (Auto) 3.8 L (15.5-49.0) % Grainger % (Auto) 2.9 (1.0-12.0) % Eos % (Auto) 0.5 (0.0-7.0) % Baso % (Auto) 0.3 (0.0-2.0) % Gran # 6.97 (1.80-8.00) K/mcL Lymph # (Auto) 0.29 L (1.50-4.80) K/mcL Grainger # (Auto) 0.22 (0.10-0.90) K/mcL Eos # (Auto) 0.04 (0.00-0.70) K/mcL Baso # (Auto) 0.02 (0.00-0.30) K/mcL Sodium 143 (133-145) mmol/L Potassium 3.4 (3.3-5.1) mmol/L Chloride 109 H (96-108) mmol/L Carbon Dioxide 20 L (22-30) mmol/L Anion Gap 14.0 (8-16) BUN 35 H (8-23) mg/dl Creatinine 2.5 H (0.7-1.2) mg/dl GFR Calculation 26 Glucose 102 (70-105) mg/dL Calcium 7.7 L (8.6-10.4) mg/dl Total Bilirubin 1.0 (0.0-1.0) mg/dL AST 35 (0-37) U/l ALT 26 (0-40) U/l Alkaline Phosphatase 393 H (39-117) U/L Troponin T 0.05 H* (0-0.03) ng/ml NT-Pro-B Natriuret Pep (0-125) pg/ml Total Protein 6.4 (5.9-8.4) gm/dL Albumin 3.1 L (3.2-5.2) gm/dL Globulin 3.3 (2.2-3.7) gm/dL Albumin/Globulin Ratio 0.9 L (1.0-2.3) 12/20/19 Range/Units 19:15 WBC (4.50-11.00) K/mcL RBC (4.63-6.08) M/mcL Hgb (13.7-17.5) g/dL Hct (40.1-51.0) % MCV (80.0-100.0) fL MCH (26.0-34.0) pg MCHC (31.0-36.0) g/dL RDW (11.5-14.5) % Plt Count (140-440) K/mcL MPV (7.4-10.4) fL Gran % (38.0-78.0) % Lymph % (Auto) (15.5-49.0) % Grainger % (Auto) (1.0-12.0) % Eos % (Auto) (0.0-7.0) % Baso % (Auto) (0.0-2.0) % Gran # (1.80-8.00) K/mcL Lymph # (Auto) (1.50-4.80) K/mcL Grainger # (Auto) (0.10-0.90) K/mcL Eos # (Auto) (0.00-0.70) K/mcL Baso # (Auto) (0.00-0.30) K/mcL Sodium (133-145) mmol/L Potassium (3.3-5.1) mmol/L Chloride (96-108) mmol/L Carbon Dioxide (22-30) mmol/L Anion Gap (8-16) BUN (8-23) mg/dl Creatinine (0.7-1.2) mg/dl GFR Calculation Glucose (70-105) mg/dL Calcium (8.6-10.4) mg/dl Total Bilirubin (0.0-1.0) mg/dL AST (0-37) U/l ALT (0-40) U/l Alkaline Phosphatase (39-117) U/L Troponin T (0-0.03) ng/ml NT-Pro-B Natriuret Pep 7879.0 H (0-125) pg/ml Total Protein (5.9-8.4) gm/dL Albumin (3.2-5.2) gm/dL Globulin (2.2-3.7) gm/dL Albumin/Globulin Ratio (1.0-2.3) Discharge Plan Patient/Caregiver Discharge Instructions Pt seen by LINER REPLACER/PA only: No Clinical Impression: Hypoxia, CHF (congestive heart failure), Pneumonia Patient Disposition: Xfer As Inpt (TS) Condition: Undetermined Follow up with: Luisito Dunn MD [Primary Care Provider] - Prescriptions: No Action gabapentin 400 MG capsule 400 mg PO BID RF: 0 tamsulosin 0.4 MG capsule 0.4 mg PO HS RF: 0 levothyroxine 150 MCG tablet 150 mcg PO DAILY RF: 0 Humalog Mix 75-25(U-100)Insuln 1 UNIT/0.01 ML suspension 15 unit SQ TID RF: 0 oseltamivir 75 MG capsule 75 mg PO BID Qty: 2 RF: 0 lisinopril 5 MG tablet 2.5 mg PO HS Qty: 30 RF: 0 metoprolol succinate 25 MG tablet extended release 24 hr 12.5 mg PO DAILY Qty: 30 RF: 0 furosemide 40 MG tablet 20 mg PO DAILY RF: 0 cyclobenzaprine 10 mg Tablet 10 mg PO TID RF: 0 atorvastatin 40 mg Tablet 40 mg PO QDAY RF: 0 doxycycline hyclate 100 mg Capsule 100 mg PO QDAY RF: 0
[2019-12-20 20:35] LABS: Basophils # (Auto) 0.02 K/mcL (0.00-0.30); Basophils % (Auto) 0.3 % (0.0-2.0); Eosinophils # (Auto) 0.04 K/mcL (0.00-0.70); Eosinophils % (Auto) 0.5 % (0.0-7.0); Granulocytes % (Auto) 92.5 % (38.0-78.0); Hematocrit 28.6 % (40.1-51.0); Hemoglobin 9.4 g/dL (13.7-17.5); Lymphocytes # (Auto) 0.29 K/mcL (1.50-4.80); Lymphocytes % (Auto) 3.8 % (15.5-49.0); Mean Cell Volume 102.1 fL (80.0-100.0); Mean Corpuscular HGB Conc 32.9 g/dL (31.0-36.0); Mean Platelet Volume 12.8 fL (7.4-10.4); Monocytes # (Auto) 0.22 K/mcL (0.10-0.90); Monocytes % (Auto) 2.9 % (1.0-12.0); Platelet Count 146 K/mcL (140-440); Red Cell Distribution Width 15.8 % (11.5-14.5); WBC 7.5 K/mcL (4.50-11.00)
[2019-12-20 20:56] LABS: ALT/SGPT 26 U/l (0-40); AST/SGOT 35 U/l (0-37); Albumin 3.1 gm/dL (3.2-5.2); Albumin/Globulin Ratio 0.9 (1.0-2.3); Alkaline Phosphatase 393 U/L (39-117); Blood Urea Nitrogen 35 mg/dl (8-23); Calcium 7.7 mg/dl (8.6-10.4); Carbon Dioxide 20 mmol/L (22-30); Globulin 3.3 gm/dL (2.2-3.7); Glomerular Filtration Rate 26; Glucose 102 mg/dL (70-105)
[2019-12-20 20:59] LABS: Chloride 109 mmol/L (96-108)
[2019-12-20] MEDS ORDERED: LEVOFLOXACIN 750 MG/150 ML BAG IV ONE (21:38)
[2019-12-20] MEDS ORDERED: cefTRIAXone 2 GM in DEXTROSE 5% IN WATER 50 ML IV ONE (21:38)
[2019-12-20] MEDS ORDERED: FUROSEMIDE 40 MG/4 ML VIAL IV ONE (22:05)
[2019-12-20] MEDS ORDERED: ONDANSETRON 4 MG/2 ML VIAL IV PRN (23:21)
[2019-12-21] MEDS ORDERED: DEXTROSE 31 GM ORAL.SUSP PO PRN ×2 (00:06→01:01)
[2019-12-21] MEDS ORDERED: DEXTROSE 50% 50 ML VIAL IV PRN ×2 (00:06→01:01)
[2019-12-21 00:28] LABS: Hemoglobin A1C 5.9 % HGB (4.0-6.0)
[2019-12-21] MEDS ORDERED: ONDANSETRON 4 MG/2 ML VIAL IV PRN (01:00)
[2019-12-21] MEDS ORDERED: ONDANSETRON 4 MG/2 ML VIAL ONE (01:24)
--- NOTE | 2019-12-21 05:51 | XRay Report ---
INDICATION: sob. History of congestive heart failure TECHNIQUE: AP portable semiupright chest x-ray COMPARISON: Chest x-ray dated 05/30/2019 FINDINGS:Previous median sternotomy. Multiple clips consistent with coronary artery bypass procedure. Lungs:Bilateral diffuse pulmonary parenchymal infiltrates pulmonary vascularity appears prominent. Right-sided infiltrates may be due to congestive heart failure and interstitial edema. There is dense consolidation in the left lung. This may also be secondary to pulmonary edema but findings are suspicious for acute pneumonia. Clinical correlation follow-up radiographs are recommended. Heart, vascular:There is cardiomegaly, unchanged. Mediastinum, erin:No mediastinal widening. No hilar mass Pleura:No definite pleural effusion identified. Skeletal:Negative. IMPRESSION: 1. Cardiomegaly and probable congestive heart failure 2. Dense consolidation in the left lung base consistent with pneumonia. Clinical correlation and follow-up radiograph recommended Interpreted and Authenticated by: Rajendra Roberts 12/21/19
[2019-12-21] MEDS ORDERED: 0.9 % SODIUM CHLORIDE 10 ML SYRINGE IV SCH ×2 (06:00)
[2019-12-21 06:01] LABS: Basophils # (Auto) 0.02 K/mcL (0.00-0.30); Basophils % (Auto) 0.2 % (0.0-2.0); Eosinophils # (Auto) 0.17 K/mcL (0.00-0.70); Eosinophils % (Auto) 1.8 % (0.0-7.0); Granulocytes % (Auto) 90.7 % (38.0-78.0); Hematocrit 27.3 % (40.1-51.0); Hemoglobin 9.1 g/dL (13.7-17.5); Lymphocytes # (Auto) 0.25 K/mcL (1.50-4.80); Lymphocytes % (Auto) 2.7 % (15.5-49.0); Mean Cell Volume 102.2 fL (80.0-100.0); Mean Corpuscular HGB Conc 33.3 g/dL (31.0-36.0); Mean Platelet Volume 12.9 fL (7.4-10.4); Monocytes # (Auto) 0.43 K/mcL (0.10-0.90); Monocytes % (Auto) 4.6 % (1.0-12.0); Platelet Count 124 K/mcL (140-440); RBC 2.67 M/mcL (4.63-6.08); Red Cell Distribution Width 15.9 % (11.5-14.5); WBC 9.3 K/mcL (4.50-11.00)
[2019-12-21 06:23] LABS: ALT/SGPT 26 U/l (0-40); AST/SGOT 46 U/l (0-37); Albumin 2.9 gm/dL (3.2-5.2); Alkaline Phosphatase 369 U/L (39-117); Bilirubin,Total 1.1 mg/dL (0.0-1.0); Blood Urea Nitrogen 38 mg/dl (8-23); C-Reactive Protein 1.7 mg/dl (0.0-0.8); Calcium 7.6 mg/dl (8.6-10.4); Carbon Dioxide 19 mmol/L (22-30); Chloride 106 mmol/L (96-108); Glomerular Filtration Rate 28; Glucose 165 mg/dL (70-105)
[2019-12-21 06:35] LABS: Ferritin 198.7 ng/ml (30-400)
--- NOTE | 2019-12-21 07:23 | Internal Med History&Physical ---
HPI History of Present Illness Patient information: Note initiated : 12/21/19 at 7:21 am Service Date, if different from initiated Date: [] Patient: Javon Head 64 y/o M admitted on 12/21/19 for found unresponsive. Chief Complaint: [] History of present illness: Mr. Head is a 64 year old M Patient is a 64-year-old male with a history of CKD, CHF, diabetes type 2, and high blood pressure who was brought to the ER due to responsiveness. As per , when she got home at about 6:30 PM today, she was found came to lie on the ground unresponsive. She guesses he probably stayed on ground about 3 hours. He he has been chronically coughing. In the ER, he was found to have hypoglycemia 38. Chest x-ray showed pneumonia or pulmonary edema. Lasix 40 mg was given. When I saw this patient in the ER, she complained of mild dizziness. Otherwise he denied headache, chest pain, shortness of breath, abdominal pain, diaphoresis, fever, or dysuria. Denied recent travel or sick contact. Review of Systems All systems: reviewed and no additional remarkable complaints except as stated PFSH PFSH All Active Problems Hypoxia (Acute) CHF (congestive heart failure) (Acute) Diabetes mellitus type 2, uncontrolled, with complications (Acute) Acidosis, metabolic (Acute) Elevated LFTs (Acute) Elevated serum creatinine (Acute) Anemia (Acute) Acute respiratory failure with hypoxia (Acute) Pneumonia (Acute) Social History smoking status: Former smoker MEDS/ALLERGIES Home Medications and Allergies Home Medications Medication Instructions Recorded Confirmed Type Humalog Mix 75-25(U-100)Insuln 15 unit SQ TID 07/13/17 12/20/19 History gabapentin 400 mg PO BID 07/13/17 12/20/19 History levothyroxine 150 mcg PO DAILY 07/13/17 12/20/19 History tamsulosin 0.4 mg PO HS 07/13/17 12/20/19 History lisinopril 2.5 mg PO HS #30 tab 07/21/17 Rx metoprolol succinate 12.5 mg PO DAILY #30 tab.xl.24h 07/21/17 Rx oseltamivir 75 mg PO BID #2 cap 07/21/17 Rx atorvastatin 40 mg PO QDAY 12/20/19 12/20/19 History cyclobenzaprine 10 mg PO TID 12/20/19 12/20/19 History doxycycline hyclate 100 mg PO QDAY 12/20/19 12/20/19 History furosemide 20 mg PO DAILY 12/20/19 12/20/19 History Allergies Allergy/AdvReac Type Severity Reaction Status Date / Time No Known Drug Allergies Allergy Verified 12/20/19 19:13 EXAM Constitutional Vitals: Temp Pulse Resp BP Pulse Ox 99.1 F H 88 21 134/70 97 12/21/19 04:00 12/21/19 06:00 12/21/19 06:00 12/21/19 06:00 12/21/19 06:00 Additional findings Additional findings: General - No acute distress Eyes - PERRLA, EOM intact ENT no rhinorrhea, no noticeable or palpable swelling, no redness or rash around throat or on face Neck supple, no JVD, no thyromegaly Respiratory: Lungs -clear, no wheezing or crackles. Cardiovascular - RRR no m/r/g, GI - Normal bowel sounds, no distended, soft. Extremeties - No edema, cyanosis or clubbing Hemo/lymphatic/immune no lymphadenopathy Neurological Alert and oriented x 3, no focal neurological deficits. Psychiatry flat affect DATA Data Completed and Pending Labs on day of discharge: Labs from last 24 hours 12/21/19 12/21/19 12/21/19 05:10 05:10 05:10 WBC RBC Hgb Hct MCV MCH MCHC RDW Plt Count MPV Gran % Lymph % (Auto) [place] % (Auto) Eos % (Auto) Baso % (Auto) Gran # Lymph # (Auto) [place] # (Auto) Eos # (Auto) Baso # (Auto) D-Dimer VBG Lactic Acid Sodium Potassium Chloride Carbon Dioxide Anion Gap BUN Creatinine GFR Calculation Glucose Hemoglobin A1c Estim Average Glucose Calcium Ferritin Total Bilirubin AST ALT Alkaline Phosphatase Total Creatine Kinase Pending CK-MB (CK-2) 24.8 H Troponin T C-Reactive Protein NT-Pro-B Natriuret Pep Total Protein Albumin Globulin Albumin/Globulin Ratio Procalcitonin 1.32 COVID-19 PCR SARS-CoV-2 (PCR) 12/21/19 12/21/19 12/21/19 05:10 05:10 05:10 WBC 9.3 RBC 2.67 L Hgb 9.1 L Hct 27.3 L MCV 102.2 H MCH 34.1 H MCHC 33.3 RDW 15.9 H Plt Count 124 L MPV 12.9 H Gran % 90.7 H Lymph % (Auto) 2.7 L [place] % (Auto) 4.6 Eos % (Auto) 1.8 Baso % (Auto) 0.2 Gran # 8.38 H Lymph # (Auto) 0.25 L [place] # (Auto) 0.43 Eos # (Auto) 0.17 Baso # (Auto) 0.02 D-Dimer 1.44 H VBG Lactic Acid Sodium Potassium Chloride Carbon Dioxide Anion Gap BUN Creatinine GFR Calculation Glucose Hemoglobin A1c Estim Average Glucose Calcium Ferritin Total Bilirubin AST ALT Alkaline Phosphatase Total Creatine Kinase CK-MB (CK-2) Troponin T 0.36 H* C-Reactive Protein NT-Pro-B Natriuret Pep Total Protein Albumin Globulin Albumin/Globulin Ratio Procalcitonin COVID-19 PCR SARS-CoV-2 (PCR) 12/21/19 12/21/19 12/21/19 05:10 01:05 01:05 WBC RBC Hgb Hct MCV MCH MCHC RDW Plt Count MPV Gran % Lymph % (Auto) [place] % (Auto) Eos % (Auto) Baso % (Auto) Gran # Lymph # (Auto) [place] # (Auto) Eos # (Auto) Baso # (Auto) D-Dimer VBG Lactic Acid Sodium 138 Potassium 3.7 Chloride 106 Carbon Dioxide 19 L Anion Gap 13.0 BUN 38 H Creatinine 2.4 H GFR Calculation 28 Glucose 165 H Hemoglobin A1c Estim Average Glucose Calcium 7.6 L Ferritin 198.7 Total Bilirubin 1.1 H AST 46 H ALT 26 Alkaline Phosphatase 369 H Total Creatine Kinase CK-MB (CK-2) Troponin T C-Reactive Protein 1.7 H NT-Pro-B Natriuret Pep Total Protein 5.9 Albumin 2.9 L Globulin 3.0 Albumin/Globulin Ratio 1.0 Procalcitonin COVID-19 PCR Covid-19 negative SARS-CoV-2 (PCR) Pending 12/21/19 12/21/19 12/20/19 00:30 00:30 23:58 WBC RBC Hgb Hct MCV MCH MCHC RDW Plt Count MPV Gran % Lymph % (Auto) [place] % (Auto) Eos % (Auto) Baso % (Auto) Gran # Lymph # (Auto) [place] # (Auto) Eos # (Auto) Baso # (Auto) D-Dimer VBG Lactic Acid Sodium Potassium Chloride Carbon Dioxide Anion Gap BUN Creatinine GFR Calculation Glucose Hemoglobin A1c Estim Average Glucose Calcium Ferritin Pending Total Bilirubin AST ALT Alkaline Phosphatase Total Creatine Kinase CK-MB (CK-2) 27.3 H Troponin T 0.22 H* C-Reactive Protein NT-Pro-B Natriuret Pep Total Protein Albumin Globulin Albumin/Globulin Ratio Procalcitonin COVID-19 PCR SARS-CoV-2 (PCR) 12/20/19 12/20/19 12/20/19 22:00 19:15 19:15 WBC RBC Hgb Hct MCV MCH MCHC RDW Plt Count MPV Gran % Lymph % (Auto) [place] % (Auto) Eos % (Auto) Baso % (Auto) Gran # Lymph # (Auto) [place] # (Auto) Eos # (Auto) Baso # (Auto) D-Dimer 0.87 H VBG Lactic Acid 0.9 Sodium Potassium Chloride Carbon Dioxide Anion Gap BUN Creatinine GFR Calculation Glucose Hemoglobin A1c 5.9 Estim Average Glucose 123 Calcium Ferritin Total Bilirubin AST ALT Alkaline Phosphatase Total Creatine Kinase CK-MB (CK-2) Troponin T C-Reactive Protein NT-Pro-B Natriuret Pep Total Protein Albumin Globulin Albumin/Globulin Ratio Procalcitonin COVID-19 PCR SARS-CoV-2 (PCR) 12/20/19 12/20/19 12/20/19 19:15 19:15 19:13 WBC RBC Hgb Hct MCV MCH MCHC RDW Plt Count MPV Gran % Lymph % (Auto) [place] % (Auto) Eos % (Auto) Baso % (Auto) Gran # Lymph # (Auto) [place] # (Auto) Eos # (Auto) Baso # (Auto) D-Dimer VBG Lactic Acid Sodium 143 Potassium 3.4 Chloride 109 H Carbon Dioxide 20 L Anion Gap 14.0 BUN 35 H Creatinine 2.5 H GFR Calculation 26 Glucose 102 Hemoglobin A1c Estim Average Glucose Calcium 7.7 L Ferritin Total Bilirubin 1.0 AST 35 ALT 26 Alkaline Phosphatase 393 H Total Creatine Kinase CK-MB (CK-2) Troponin T 0.05 H* C-Reactive Protein NT-Pro-B Natriuret Pep 7879.0 H Total Protein 6.4 Albumin 3.1 L Globulin 3.3 Albumin/Globulin Ratio 0.9 L Procalcitonin COVID-19 PCR SARS-CoV-2 (PCR) 12/20/19 19:13 WBC 7.5 RBC 2.80 L Hgb 9.4 L Hct 28.6 L MCV 102.1 H MCH 33.6 MCHC 32.9 RDW 15.8 H Plt Count 146 MPV 12.8 H Gran % 92.5 H Lymph % (Auto) 3.8 L [place] % (Auto) 2.9 Eos % (Auto) 0.5 Baso % (Auto) 0.3 Gran # 6.97 Lymph # (Auto) 0.29 L [place] # (Auto) 0.22 Eos # (Auto) 0.04 Baso # (Auto) 0.02 D-Dimer VBG Lactic Acid Sodium Potassium Chloride Carbon Dioxide Anion Gap BUN Creatinine GFR Calculation Glucose Hemoglobin A1c Estim Average Glucose Calcium Ferritin Total Bilirubin AST ALT Alkaline Phosphatase Total Creatine Kinase CK-MB (CK-2) Troponin T C-Reactive Protein NT-Pro-B Natriuret Pep Total Protein Albumin Globulin Albumin/Globulin Ratio Procalcitonin COVID-19 PCR SARS-CoV-2 (PCR) A/P Narrative A/P Narrative: 1. Acute hypoxic respiratory failure Pulse ox Oxygen therapy to keep spO2 > 92% 2. Pneumonia, viral or bacteria? Patient was admitted to the hospital for influenza pneumonia on July 13, 2017 COVID-19 PCR and swab Ferritin, d-dimer, lactic acid, CRP, procalcitonin Levaquin 3. Unresponsiveness R46. 4 Most likely due to hypoglycemia No focal neurological deficits Monitor 3. Hypoglycemia E16.2 Pt is on Humalog 15units, 15units and 20units. Considering his renal status, his insulin should be reduced. I will hold his scheduled insulin and give him insulin ss only will adjust insulin based on BG levels. 4. MIGUELANGEL on CKD, baseline creatinine around 2.0 Avoid nephrotoxic meds Home lisinopril is on hold Repeat renal function in morning 5. Systolic congestive heart failure I50.2 Echocardiogram 40 mg of Lasix was given in the ER His home medication Lasix 40 mg daily is on hold Lasix 40 mg IV daily (tomorrow) 6. 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 Elevation of troponin R79.89 EKG showed Q wave in the V2 to V5, which is similar to the EKG on July 21 Troponin 0.05, trending troponin Patient understood that there is no forest pathologist available in this hospital. 8. HTN Continue metoprolol Monitor 9. DVT prophylaxis: Heparin 10. CODE STATUS: Rd Scientist Spent With Patient Time: Total time spent is greater than 50% in coordination of care (as documented) at patient's floor/unit and/or counseling patient:
[2019-12-21] MEDS ORDERED: INSULIN LISPRO 1 UNIT/0.01 ML UNIT SQ SCH (07:30)
[2019-12-21] MEDS ORDERED: LEVOTHYROXINE 150 MCG TABLET PO SCH ×2 (07:30→09:00)
[2019-12-21] MEDS: INSULIN LISPRO 1 UNIT/0.01 ML UNIT SQ SCH ×2 (07:33→12:17)
[2019-12-21] MEDS ORDERED: DOCUSATE SODIUM 100 MG CAPSULE PO SCH ×2 (09:00)
[2019-12-21] MEDS ORDERED: ASPIRIN 81 MG TAB.CHEW PO SCH (09:00)
[2019-12-21] MEDS ORDERED: ATORVASTATIN 40 MG TABLET PO SCH ×2 (09:00)
[2019-12-21] MEDS ORDERED: HEPARIN 5,000 UNIT/ML VIAL SQ SCH ×2 (09:00)
[2019-12-21] MEDS ORDERED: CYCLOBENZAPRINE (PP) 10 MG TABLET PO SCH (09:00)
[2019-12-21] MEDS ORDERED: ASPIRIN 325 MG TABLET.DR PO SCH ×2 (09:00)
[2019-12-21] MEDS ORDERED: FUROSEMIDE 100 MG/10 ML VIAL IV SCH (09:00)
[2019-12-21] MEDS ORDERED: METOPROLOL SUCCINATE 25 MG TAB.XL.24H PO SCH (09:00)
[2019-12-21] MEDS ORDERED: ENOXAPARIN 100 MG/ML SYRINGE SQ SCH (09:00)
[2019-12-21] MEDS ORDERED: GABAPENTIN 400 MG CAPSULE PO SCH ×2 (09:00)
[2019-12-21] MEDS ORDERED: FUROSEMIDE 40 MG/4 ML VIAL IV SCH (09:00)
[2019-12-21 09:16] LABS: Creatine Kinase 541 IU/L (24-195)
[2019-12-21] MEDS ORDERED: 0.9 % SODIUM CHLORIDE 1,000 ML IV SCH (09:30)
[2019-12-21] MEDS: CYCLOBENZAPRINE 10 MG TABLET PO SCH ×2 (10:03→10:49)
[2019-12-21] MEDS: METOPROLOL SUCCINATE 25 MG TAB.XL.24H PO SCH ×2 (10:03→10:49)
--- NOTE | 2019-12-21 10:26 | Event Note ---
Event Note Event Note: Discussed pt's troponin and EKG with cardiology Dr. Earl at [facility] in [place] who felt this could be a demand ischemia. He agreed with current treatment. But he can consult on the pt if pt is transferred to [facility]. Awaiting for bed.
[2019-12-21] MEDS ORDERED: TAMSULOSIN 0.4 MG CAPSULE PO SCH ×2 (11:00→21:00)
--- NOTE | 2019-12-21 12:11 | Discharge Summary ---
Discharge Provider Provider Patient information: Note initiated : 12/21/19 at 12:04 pm Service Date, if different from initiated Date: [] Patient: Javon Head 64 y/o M admitted on 12/21/19 for found unresponsive. Chief Complaint: [] Date of admission: 12/21/19 00:46 Discharge date: 12/21/19 Primary care physician: Luisito Dunn Consults: 12/20/19 Consult to Physician [CONS] Stat Comment: Consulting Provider: Khadijah Schmid Reason For Exam: Physician to Consult Discharge Meds Discharge Medications Home Medications Humalog Mix 75-25(U-100)Insuln 15 unit SQ TID 07/13/17 [History Confirmed 12/20/19 Last Taken Unknown] gabapentin 400 mg PO BID 07/13/17 [History Confirmed 12/20/19 Last Taken Unknown] levothyroxine 150 mcg PO DAILY 07/13/17 [History Confirmed 12/20/19 Last Taken Unknown] tamsulosin 0.4 mg PO HS 07/13/17 [History Confirmed 12/20/19 Last Taken Unknown] lisinopril 2.5 mg PO HS #30 tab 07/21/17 [Rx Last Taken Unknown] metoprolol succinate 12.5 mg PO DAILY #30 tab.xl.24h 07/21/17 [Rx Last Taken Unknown] oseltamivir 75 mg PO BID #2 cap 07/21/17 [Rx Last Taken Unknown] atorvastatin 40 mg PO QDAY 12/20/19 [History Confirmed 12/20/19 Last Taken Unknown] cyclobenzaprine 10 mg PO TID 12/20/19 [History Confirmed 12/20/19 Last Taken Unknown] doxycycline hyclate 100 mg PO QDAY 12/20/19 [History Confirmed 12/20/19 Last Taken Unknown] furosemide 20 mg PO DAILY 12/20/19 [History Confirmed 12/20/19 Last Taken Unknown] COURSE Hospital Course Hospital course: By problems: 1. Acute hypoxic respiratory failure Pulse ox Oxygen therapy to keep spO2 > 92% 2. Pneumonia, viral or bacteria? Patient was admitted to the hospital for influenza pneumonia on July 13, 2017 COVID-19 PCR and swab Ferritin, d-dimer, lactic acid, CRP, procalcitonin Levaquin 3. Unresponsiveness R46. 4 Most likely due to hypoglycemia No focal neurological deficits Monitor 3. Hypoglycemia E16.2 Pt is on Humalog 15units, 15units and 20units. Considering his renal status, his insulin should be reduced. I will hold his scheduled insulin and give him insulin ss only will adjust insulin based on BG levels. 4. MIGUELANGEL on CKD, baseline creatinine around 2.0 Avoid nephrotoxic meds Home lisinopril is on hold Repeat renal function in morning 5. Systolic congestive heart failure I50.2 Echocardiogram - EF 20-25% 40 mg of Lasix was given in the ER His home medication Lasix 40 mg daily is on hold Lasix 40 mg IV daily 6. 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 Elevation of troponin R79.89 EKG showed Q wave in the V2 to V5, which is similar to the EKG on July 21 Troponin 0.05, 0.22, 0.36, 0.44, trending troponin aspirin, lipitor and lovanox 100mg daily. 8. Elevation of D-dimer lovanox 100mg daily 9. Elevation of CK Gentle IVF repeat renal function in am. 10. HTN Continue metoprolol Monitor Spoke to Dr. Vazquez at [place] [facility] who accepted the pt for further workup and treatment. Discharge diagnosis: respiratory failure, PNA. Time Spent with Patient Time attestation: Total time spent providing and/or coordinating discharge services: EXAM Constitutional Vitals: Temp Pulse Resp BP Pulse Ox 99.8 F H 88 22 133/71 97 12/21/19 08:01 12/21/19 11:01 12/21/19 11:01 12/21/19 11:01 12/21/19 11:01 Additional findings Additional findings: General - No acute distress Eyes - PERRLA, EOM intact ENT no rhinorrhea, no noticeable or palpable swelling, no redness or rash around throat or on face Neck supple, no JVD, no thyromegaly Respiratory: Lungs -course BS. Cardiovascular - RRR no m/r/g, GI - Normal bowel sounds, no distended, soft. Extremeties - No edema, cyanosis or clubbing Hemo/lymphatic/immune no lymphadenopathy Neurological Alert and oriented x 3, no focal neurological deficits. Psychiatry flat affect Discharge Data Data Completed and Pending Labs on day of discharge: Labs from last 24 hours 12/21/19 12/21/19 12/21/19 09:57 09:57 05:10 WBC RBC Hgb Hct MCV MCH MCHC RDW Plt Count MPV Gran % Lymph % (Auto) [place] % (Auto) Eos % (Auto) Baso % (Auto) Gran # Lymph # (Auto) [place] # (Auto) Eos # (Auto) Baso # (Auto) D-Dimer VBG Lactic Acid Sodium Potassium Chloride Carbon Dioxide Anion Gap BUN Creatinine GFR Calculation Glucose Hemoglobin A1c Estim Average Glucose Calcium Ferritin Total Bilirubin AST ALT Alkaline Phosphatase Total Creatine Kinase 475 H CK-MB (CK-2) 21.5 H Troponin T 0.42 H* C-Reactive Protein NT-Pro-B Natriuret Pep Total Protein Albumin Globulin Albumin/Globulin Ratio Procalcitonin COVID-19 PCR SARS-CoV-2 (PCR) 12/21/19 12/21/19 12/21/19 05:10 05:10 05:10 WBC RBC Hgb Hct MCV MCH MCHC RDW Plt Count MPV Gran % Lymph % (Auto) [place] % (Auto) Eos % (Auto) Baso % (Auto) Gran # Lymph # (Auto) [place] # (Auto) Eos # (Auto) Baso # (Auto) D-Dimer 1.44 H VBG Lactic Acid Sodium Potassium Chloride Carbon Dioxide Anion Gap BUN Creatinine GFR Calculation Glucose Hemoglobin A1c Estim Average Glucose Calcium Ferritin Total Bilirubin AST ALT Alkaline Phosphatase Total Creatine Kinase CK-MB (CK-2) 24.8 H Troponin T C-Reactive Protein NT-Pro-B Natriuret Pep Total Protein Albumin Globulin Albumin/Globulin Ratio Procalcitonin 1.32 COVID-19 PCR SARS-CoV-2 (PCR) 12/21/19 12/21/19 12/21/19 05:10 05:10 05:10 WBC 9.3 RBC 2.67 L Hgb 9.1 L Hct 27.3 L MCV 102.2 H MCH 34.1 H MCHC 33.3 RDW 15.9 H Plt Count 124 L MPV 12.9 H Gran % 90.7 H Lymph % (Auto) 2.7 L [place] % (Auto) 4.6 Eos % (Auto) 1.8 Baso % (Auto) 0.2 Gran # 8.38 H Lymph # (Auto) 0.25 L [place] # (Auto) 0.43 Eos # (Auto) 0.17 Baso # (Auto) 0.02 D-Dimer VBG Lactic Acid Sodium 138 Potassium 3.7 Chloride 106 Carbon Dioxide 19 L Anion Gap 13.0 BUN 38 H Creatinine 2.4 H GFR Calculation 28 Glucose 165 H Hemoglobin A1c Estim Average Glucose Calcium 7.6 L Ferritin 198.7 Total Bilirubin 1.1 H AST 46 H ALT 26 Alkaline Phosphatase 369 H Total Creatine Kinase CK-MB (CK-2) Troponin T 0.36 H* C-Reactive Protein 1.7 H NT-Pro-B Natriuret Pep Total Protein 5.9 Albumin 2.9 L Globulin 3.0 Albumin/Globulin Ratio 1.0 Procalcitonin COVID-19 PCR SARS-CoV-2 (PCR) 12/21/19 12/21/19 12/21/19 01:05 01:05 00:30 WBC RBC Hgb Hct MCV MCH MCHC RDW Plt Count MPV Gran % Lymph % (Auto) [place] % (Auto) Eos % (Auto) Baso % (Auto) Gran # Lymph # (Auto) [place] # (Auto) Eos # (Auto) Baso # (Auto) D-Dimer VBG Lactic Acid Sodium Potassium Chloride Carbon Dioxide Anion Gap BUN Creatinine GFR Calculation Glucose Hemoglobin A1c Estim Average Glucose Calcium Ferritin Total Bilirubin AST ALT Alkaline Phosphatase Total Creatine Kinase 541 H CK-MB (CK-2) Troponin T C-Reactive Protein NT-Pro-B Natriuret Pep Total Protein Albumin Globulin Albumin/Globulin Ratio Procalcitonin COVID-19 PCR Covid-19 negative SARS-CoV-2 (PCR) Pending 12/21/19 12/21/19 12/20/19 00:30 00:30 23:58 WBC RBC Hgb Hct MCV MCH MCHC RDW Plt Count MPV Gran % Lymph % (Auto) [place] % (Auto) Eos % (Auto) Baso % (Auto) Gran # Lymph # (Auto) [place] # (Auto) Eos # (Auto) Baso # (Auto) D-Dimer VBG Lactic Acid Sodium Potassium Chloride Carbon Dioxide Anion Gap BUN Creatinine GFR Calculation Glucose Hemoglobin A1c Estim Average Glucose Calcium Ferritin Pending Total Bilirubin AST ALT Alkaline Phosphatase Total Creatine Kinase CK-MB (CK-2) 27.3 H Troponin T 0.22 H* C-Reactive Protein NT-Pro-B Natriuret Pep Total Protein Albumin Globulin Albumin/Globulin Ratio Procalcitonin COVID-19 PCR SARS-CoV-2 (PCR) 12/20/19 12/20/19 12/20/19 22:00 19:15 19:15 WBC RBC Hgb Hct MCV MCH MCHC RDW Plt Count MPV Gran % Lymph % (Auto) [place] % (Auto) Eos % (Auto) Baso % (Auto) Gran # Lymph # (Auto) [place] # (Auto) Eos # (Auto) Baso # (Auto) D-Dimer 0.87 H VBG Lactic Acid 0.9 Sodium Potassium Chloride Carbon Dioxide Anion Gap BUN Creatinine GFR Calculation Glucose Hemoglobin A1c 5.9 Estim Average Glucose 123 Calcium Ferritin Total Bilirubin AST ALT Alkaline Phosphatase Total Creatine Kinase CK-MB (CK-2) Troponin T C-Reactive Protein NT-Pro-B Natriuret Pep Total Protein Albumin Globulin Albumin/Globulin Ratio Procalcitonin COVID-19 PCR SARS-CoV-2 (PCR) 12/20/19 12/20/19 12/20/19 19:15 19:15 19:13 WBC RBC Hgb Hct MCV MCH MCHC RDW Plt Count MPV Gran % Lymph % (Auto) [place] % (Auto) Eos % (Auto) Baso % (Auto) Gran # Lymph # (Auto) [place] # (Auto) Eos # (Auto) Baso # (Auto) D-Dimer VBG Lactic Acid Sodium 143 Potassium 3.4 Chloride 109 H Carbon Dioxide 20 L Anion Gap 14.0 BUN 35 H Creatinine 2.5 H GFR Calculation 26 Glucose 102 Hemoglobin A1c Estim Average Glucose Calcium 7.7 L Ferritin Total Bilirubin 1.0 AST 35 ALT 26 Alkaline Phosphatase 393 H Total Creatine Kinase CK-MB (CK-2) Troponin T 0.05 H* C-Reactive Protein NT-Pro-B Natriuret Pep 7879.0 H Total Protein 6.4 Albumin 3.1 L Globulin 3.3 Albumin/Globulin Ratio 0.9 L Procalcitonin COVID-19 PCR SARS-CoV-2 (PCR) 12/20/19 19:13 WBC 7.5 RBC 2.80 L Hgb 9.4 L Hct 28.6 L MCV 102.1 H MCH 33.6 MCHC 32.9 RDW 15.8 H Plt Count 146 MPV 12.8 H Gran % 92.5 H Lymph % (Auto) 3.8 L [place] % (Auto) 2.9 Eos % (Auto) 0.5 Baso % (Auto) 0.3 Gran # 6.97 Lymph # (Auto) 0.29 L [place] # (Auto) 0.22 Eos # (Auto) 0.04 Baso # (Auto) 0.02 D-Dimer VBG Lactic Acid Sodium Potassium Chloride Carbon Dioxide Anion Gap BUN Creatinine GFR Calculation Glucose Hemoglobin A1c Estim Average Glucose Calcium Ferritin Total Bilirubin AST ALT Alkaline Phosphatase Total Creatine Kinase CK-MB (CK-2) Troponin T C-Reactive Protein NT-Pro-B Natriuret Pep Total Protein Albumin Globulin Albumin/Globulin Ratio Procalcitonin COVID-19 PCR SARS-CoV-2 (PCR) Discharge Plan Patient/Caregiver Discharge Instructions Prescriptions: No Action gabapentin 400 MG capsule 400 mg PO BID RF: 0 tamsulosin 0.4 MG capsule 0.4 mg PO HS RF: 0 levothyroxine 150 MCG tablet 150 mcg PO DAILY RF: 0 Humalog Mix 75-25(U-100)Insuln 1 UNIT/0.01 ML suspension 15 unit SQ TID RF: 0 oseltamivir 75 MG capsule 75 mg PO BID Qty: 2 RF: 0 lisinopril 5 MG tablet 2.5 mg PO HS Qty: 30 RF: 0 metoprolol succinate 25 MG tablet extended release 24 hr 12.5 mg PO DAILY Qty: 30 RF: 0 furosemide 40 MG tablet 20 mg PO DAILY RF: 0 cyclobenzaprine 10 mg Tablet 10 mg PO TID RF: 0 atorvastatin 40 mg Tablet 40 mg PO QDAY RF: 0 doxycycline hyclate 100 mg Capsule 100 mg PO QDAY RF: 0 Follow Up Plan Follow up with: Luisito Dunn MD [Primary Care Provider] - Patient Disposition: [facility] Prognosis: Undetermined Discharge Orders: Discharge Order (Routine); Ordered 12/21/19 Ordered By: Khadijah Schmid
[2019-12-22] MEDS ORDERED: LEVOFLOXACIN 500 MG/100 ML BAG IV SCH ×2 (09:00)
== END 2019-12-21 13:22 | disposition short-term general hospital (02) | DRG 193 ==
LOC: ED 18:59 → ICU 12-21 00:46
PROVIDERS: ADMIT Internal Medicine; ATTEND Internal Medicine